=== PATIENT | female | born 1950 | race Caucasian/White ===

== ENCOUNTER 2016-11-28 19:02 | Inpatient (IN) | payer OTHER ==
--- NOTE | 2016-11-28 19:21 | ED Physician Documentation ---
PD HPI DYSPNEA - Stated complaint Stated Complaint: IRREGULAR HB/FEVER - Chief complaint Chief Complaint: Cardiac - History obtained from History obtained from: Patient - History of Present Illness Timing - onset: How many days ago (4-5) Timing - onset during: Light activity Timing - duration: Days (4-5 days of fatigue, general weakness and some cough. Also general headache for 4-5 days. Seen at [facility] today and referred to ED for apparent new onset atrial fib.) Timing - details: Gradual onset, Still present, Waxing and waning Inciting event(s): No: URI Improved by: Rest Worsened by: Exertion (she has felt some dyspnea and fatigue with activity for 4 -5 days. Did not notice chest pain nor palpitations. No noted fever but has had some cough. No edema. Seen in Clinic today and found to have fast heart rate, apparent new onset atrial fib. Referred to ED for further evaluation. BP also noted to be high. Clinic got temp reading of just about 100 but patient says she has not felt feverish. Temp is normal here in ED.) Associated symptoms: Cough, Other (headache for 4-5 days, worse today). No: Fever, Hemoptysis, Wheezing, Chest pain / discomfort, Palpitations, Bilateral edema Similar symptoms before: Has not had sx before (Remotely in 2007 had severe headache which was Dx as aneurysmal bleeding. Had neurosurgical intervention and also coiling of aneurysm, and has done well (with just some dysconjugate gaze problem residual).) Recently seen: Clinic (today seen in Clinic for the headache and cough/dyspnea.) Review of Systems Constitutional: reports: Fatigue. denies: Fever, Chills, Myalgias Eyes: denies: Loss of vision, Photophobia Ears: denies: Ear pain Nose: denies: Rhinorrhea / runny nose, Congestion, Sinus pressure / pain Throat: denies: Sore throat Cardiac: denies: Chest pain / pressure, Palpitations Respiratory: reports: Dyspnea, Cough. denies: Wheezing GI: denies: Abdominal Pain, Nausea, Vomiting, Diarrhea : denies: Dysuria, Frequency Skin: denies: Rash, Lesions Neurologic: reports: Headache (for 4-5 days). denies: Focal weakness, Numbness , Difficulty speaking, Near syncope, Confused, Altered mental status, Head injury Psychiatric: denies: Depressed, Anxiety Endocrine: denies: Weight loss, Easy bruising / bleeding Immunocompromised: denies: Immunocompromised PD PAST MEDICAL HISTORY - Past Medical History Cardiovascular: Hypertension Respiratory: None Neuro: Other (aneurysmal bleeding with stroke and subsequent coling of it, done 2007 in [facility]. 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 : None HEENT: None Psych: None Musculoskeletal: None Derm: None - Past Surgical History Past Surgical History: Yes - Present Medications Home Medications: Ambulatory Orders Medication Instructions Recorded Confirmed Metoprolol Tartrate [Lopressor] 2 01/11/13 01/11/13 Olmesartan Medoxomil [Benicar] DAILY 01/11/13 01/11/13 Potassium Chloride 2 DAILY 01/11/13 01/11/13 predniSONE [Deltasone] 40 mg PO DAILY 5 Days 01/11/13 - Allergies Allergies/Adverse Reactions: Allergies Allergy/AdvReac Type Severity Reaction Status Date / Time lisinopril Allergy Severe Respiratory Verified 11/28/16 19:09 amlodipine besylate * AdvReac Intermediate Edema Verified 11/28/16 19:09 [facility] - Social History Does the pt smoke?: No Smoking Status: Never smoker Does the pt drink ETOH?: No Does the pt have substance abuse?: No - Family History Family history: reports: Non contributory - Immunizations Immunizations are current?: Yes - POLST Patient has POLST: No PD ED PE NORMAL - Vitals Vital signs reviewed: Yes - General General: Alert and oriented X 3, No acute distress, Well developed/nourished - HEENT HEENT: Ears normal, Moist mucous membranes, Pharynx benign - Neck Neck: Supple, no meningeal sign, No adenopathy - Cardiac Cardiac: No: RRR (irregular and fast at rate 120-130, no murmur nor rub. 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 ), No motor deficit, No sensory deficit, Normal speech Results - Vitals Vitals: Vital Signs - 24 hr 11/28/16 11/28/16 11/28/16 19:05 19:17 19:35 Temperature 37.4 C Heart Rate 125 H 128 H Respiratory 13 20 Rate Blood Pressure 200/105 H 170/96 H O2 Saturation 96 96 11/28/16 11/28/16 11/28/16 19:55 20:02 20:23 Temperature Heart Rate 132 H 109 H 111 H Respiratory 20 20 20 Rate Blood Pressure 193/91 H 169/100 H 155/95 H O2 Saturation 94 95 94 11/28/16 11/28/16 11/28/16 20:56 21:27 21:33 Temperature Heart Rate 101 H 97 108 H Respiratory 18 20 18 Rate Blood Pressure 174/108 H 157/83 H 168/89 H O2 Saturation 94 95 96 11/28/16 11/28/16 11/28/16 21:51 22:18 22:50 Temperature Heart Rate 96 112 H 87 Respiratory 20 20 18 Rate Blood Pressure 149/80 H 161/69 H 141/95 H O2 Saturation 96 97 97 11/28/16 11/28/16 11/29/16 23:36 23:52 00:05 Temperature Heart Rate 105 H 115 H 96 Respiratory 20 18 18 Rate Blood Pressure 163/96 H 149/74 H 159/98 H O2 Saturation 93 96 94 Oxygen O2 Source Room air - EKG (time done) 19:12 Rate: Rate (enter#) (134) Rhythm: Atrial fibrillation [place]: Normal QRS: Normal Ischemia: Normal ST segments, Non specific changes. No: ST elevation c/w ischemia, ST depression - Labs Labs: Laboratory Tests 11/28/16 11/28/16 11/28/16 19:20 19:20 19:20 WBC 10.8 RBC 4.80 Hgb 15.0 Hct 45.4 MCV 94.6 MCH 31.3 H MCHC 33.1 RDW 13.5 Plt Count 181 MPV 7.8 L Neut # 5.8 Lymph # 3.7 H [place] # 1.0 Eos # 0.2 Baso # 0.1 Absolute Nucleated RBC 0.01 Nucleated RBCs 0.1 ESR Sodium 141 Potassium 3.6 Chloride 100 L Carbon Dioxide 28 Anion Gap 13.0 BUN 20 Creatinine 1.0 Estimated GFR (MDRD) 56 L Glucose 178 H Calcium 9.5 Magnesium Total Bilirubin 0.6 AST 35 ALT 41 Alkaline Phosphatase 62 Troponin I < 0.04 B-Natriuretic Peptide Total Protein 8.4 H Albumin 4.2 Globulin 4.2 Albumin/Globulin Ratio 1.0 Lipase 39 11/28/16 11/28/16 11/28/16 19:22 19:22 19:22 WBC RBC Hgb Hct MCV MCH MCHC RDW Plt Count MPV Neut # Lymph # [place] # Eos # Baso # Absolute Nucleated RBC Nucleated RBCs ESR 32 H Sodium Potassium Chloride Carbon Dioxide Anion Gap BUN Creatinine Estimated GFR (MDRD) Glucose Calcium Magnesium 1.9 Total Bilirubin AST ALT Alkaline Phosphatase Troponin I B-Natriuretic Peptide 520 H Total Protein Albumin Globulin Albumin/Globulin Ratio Lipase - Rads (name of study) head CT Radiology: Prelim report reviewed, Discussed with rads (areas of petechial hemorrhage around sites of old infarcts and encephalomalacia. These are not in area of prior aneurysm/coil. ) chest Radiology: Prelim report reviewed (normal chest), EMP read contemporaneously ( some vascular fullness c/w mild CHF) PD MEDICAL DECISION MAKING - ED course Complexity details: reviewed results, considered differential (apparently new onset atrial fib. She has had some fatigue, dyspnea, mild cough and so may have some URI symptoms with subsequent atrial fib. Alternatively she might be having general symptoms related to the fib primarily. [facility] provider reports mild temp elevation 100.1 there, but patient denies fever the past few days and temp is normal here. Will give added Metoprolol for heart rate and BP. Check labs and CXR. ), d/w patient, d/w product consultant (consulting [facility] (had her aneurysm treated there) with concern for hypertensive bleed in conjunction with new onset atrial fib. Presume talk with Neurology. So I talked with Neurology and Neurosurgery at [facility]. Consensus is that the current is unrelated to the prior aneurysm/coil. Neurology feels the posterior CVA is probably subacute, more in the days to week range, likely embolic to the new atrial fib, and now with acute petechial hemorrhagic transformation. He did not see need for transfer. Neurologist advised holding ASA, repeating imaging tomorrow (about 24 hours) and if no further bleeding, then give ASA at that time. To get ECHO and Carotid studies. He would wait a week before starting NOAC/Coumadin, unless thrombus in heart found on ECHO, then to consult them again. Consider transfer if further bleeding or neuro changes. Target BP would be about 140-160 systolic. ) Departure - Departure Disposition: 66 [facility] DC/Xfer Clinical Impression: Atrial fibrillation with rapid ventricular response, Cerebrovascular accident ( CVA) with intracranial hemorrhage Dyspnea Qualifiers: Dyspnea type: shortness of breath Qualified Code(s): R06.02 - Shortness of breath Hypertension Qualifiers: Hypertension type: unspecified secondary hypertension Qualified Code(s): I15.9 - Secondary hypertension, unspecified Closed petechial hemorrhage of brain Qualifiers: Encounter type: initial encounter Loss of consciousness presence/duration: without LOC Qualified Code(s): S06.300A - Unspecified focal traumatic brain injury without loss of consciousness, initial encounter Condition: Stable Record reviewed to determine appropriate education?: Yes
[2016-11-28 19:29] LABS: BASOPHILS # (AUTO) 0.1 10^3/uL (0.0-0.1); BASOPHILS % (AUTO) 0.7 %; EOSINOPHILS # (AUTO) 0.2 10^3/uL (0.0-0.7); EOSINOPHILS % (AUTO) 2.2 %; HCT - HEMATOCRIT 45.4 % (37.0-47.0); LYMPHOCYTES # (AUTO) 3.7 10^3/uL (1.5-3.5); LYMPHOCYTES % (AUTO) 34.6 %; MEAN CORPUSCULAR HEMOGLOBIN 31.3 pg (27.0-31.0); MEAN CORPUSCULAR HGB CONC 33.1 g/dL (32.0-36.0); MEAN CORPUSCULAR VOLUME 94.6 fL (81.0-99.0); MEAN PLATELET VOLUME 7.8 fL (7.9-10.8); MONOCYTES % (AUTO) 9.3 %; NEUTROPHILS # (AUTO) 5.8 10^3/uL (1.5-6.6); NEUTROPHILS % (AUTO) 53.2 %; NUCLEATED RED BLOOD CELLS AUTO 0.1 /100WBC; RED CELL DISTRIBUTION WIDTH 13.5 % (12.0-15.0); UNCORRECTED WHITE BLOOD COUNT 10.8 x10^3/uL; WHITE BLOOD COUNT 10.8 x10^3/uL (4.8-10.8)
[2016-11-28 19:45] LABS: BILIRUBIN,TOTAL 0.6 mg/dL (0.2-1.0); CALCIUM 9.5 mg/dL (8.5-10.3); POTASSIUM 3.6 mmol/L (3.5-5.0); TOTAL PROTEIN 8.4 g/dL (6.7-8.2)
[2016-11-28] MEDS ORDERED: METOPROLOL 5 MG/5 ML VIAL IVP STA ×4 (19:52→23:46)
[2016-11-28] MEDS ORDERED: METOPROLOL 5 MG/5 ML VIAL IVP ONE ×4 (19:52→23:48)
[2016-11-28] MEDS ORDERED: POTASSIUM BICARB 25 MEQ TABLET PO STA (20:19)
[2016-11-28] MEDS ORDERED: KETOROLAC 60 MG/2 ML VIAL IVP STA (20:41)
[2016-11-28] MEDS ORDERED: MORPHINE 2 MG/ML SYRINGE IVP STA (20:41)
[2016-11-28] MEDS ORDERED: ONDANSETRON 4 MG/2 ML VIAL IVP STA (20:42)
[2016-11-28] MEDS ORDERED: POTASSIUM BICARB 25 MEQ TABLET PO ONE (20:56)
--- NOTE | 2016-11-28 21:10 | CT Preliminary Report ---
Exam: CT Head W/O IMPRESSION: 1. Cortical high attenuation in medial right occipital lobe, concerning for a gyriform or petechial h emorrhage, such as with hemorrhagic transformation of cerebral infarction. In this right occipital lo be there is evidence of an old right posterior circulation infarcts with chronic encephalomalacia. 2. No subdural fluid collection or mass effect. RADIA The above critical findings were discussed with Dr. Gillespie by Dr. Manfred Chadwick at 21:08 hr s on 11/28/16. SITE ID: [id number]
--- NOTE | 2016-11-28 21:12 | XRAY Preliminary Report ---
Exam: XR Chest 1 View IMPRESSION: Negative chest. [facility] SITE ID: [id number]
--- NOTE | 2016-11-28 21:13 | CT Report ---
EXAM: CT HEAD EXAM DATE: 11/28/2016 08:32 PM. CLINICAL HISTORY: Headache for 5 days; prior aneurysm clipping. COMPARISON: None. TECHNIQUE: Multiaxial CT images were obtained from the foramen magnum to the vertex. IV contrast: Non e. Reformats: Coronal. In accordance with CT protocol optimization, one or more of the following dose reduction techniques w ere utilized for this exam: automated exposure control, adjustment of mA and/or KV based on patient s ize, or use of iterative reconstructive technique. FINDINGS: Parenchyma: There is parenchymal hypodensity in the right occipital lobe with adjacent curvilinear ar ea of cortical hyperdensity in the medial right occipital lobe. There is blunting of sulci in the med ial right occipital lobe. There is no midline shift. Extraaxial Spaces: No abnormal subdural or epidural fluid collection. Ventricles: The ventricles appear unchanged. Sinuses: Paranasal sinuses are clear. Bones: No caliber and fracture. Other: None. IMPRESSION: 1. Cortical high attenuation in medial right occipital lobe, concerning for a gyriform or petechial h emorrhage, such as with hemorrhagic transformation of cerebral infarction. In this right occipital lo be there is evidence of an old right posterior circulation infarcts with chronic encephalomalacia. 2. No subdural fluid collection or mass effect. RADIA The above critical findings were discussed with Dr. Gillespie by Dr. Manfred Chadwick at 21:08 hr s on 11/28/16. Referring Provider Line: [phone] SITE ID: [id number]
--- NOTE | 2016-11-28 21:15 | XRAY Report ---
EXAM: CHEST RADIOGRAPHY EXAM DATE: 11/28/2016 08:40 PM. CLINICAL HISTORY: Dyspnea and atrial fib. COMPARISON: None. TECHNIQUE: 1 view. FINDINGS: Lungs/Pleura: No focal opacities evident. No pleural effusion. No pneumothorax. Mediastinum: Within exam limitations, cardiomediastinal contour is normal. Other: None. IMPRESSION: Negative chest. [facility] Referring Provider Line: [phone] SITE ID: [id number]
[2016-11-29] MEDS ORDERED: ONDANSETRON 4 MG/2 ML VIAL IVP PRN (00:19)
[2016-11-29] MEDS ORDERED: SODIUM CHLORIDE FLUSH 0.9% 10 ML SYRINGE IVP PRN (00:19)
--- NOTE | 2016-11-29 03:24 | HISTORY & PHYSICAL EXAMINATION ---
DATE OF ADMISSION: 11/29/2016 PRIMARY CARE PROVIDER: [facility]. CHIEF COMPLAINT: Headache and dyspnea with exertion over the past 5 days. HISTORY OF PRESENT ILLNESS: This is a 66-year-old female whose past medical history is significant fo r hypertension. 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 Otherwise, she has no acute neurological symptoms except for generalized headache. No visual disturbances. No motor deficits. No sensory deficits, no speech d ifficulties. Her evaluation in the emergency room included the discovery of RVR atrial fibrillation. She has no history of RVR atrial fibrillation. Her initial rate was 134. She was given several doses of metoprolol and currently is 90-105. Troponin is negative. CT of head without contrast reveals rosi ical high attenuation in the medial right occipital lobe, concerning for a gyriform or petechial hemo rrhage such as with hemorrhagic transformation of cerebral infarction. In this right occipital lobe, there is evidence of an old posterior circulation infarct with chronic encephalomalacia. No subdural fluid collection or mass effect is noted. These findings were discussed by ER physician, Dr. Gillespie, with [facility] Neurosurgery and Neurology. This does not appear to be in the area of previous aneur ysmal coiling and it was recommended that the patient not be given antiplatelet agents for the next 2 4 hours and recheck a CT of head without contrast and do additional CVA imaging studies as usual. The y did recommend also initiating oral anticoagulants in 1-2 weeks. PAST MEDICAL HISTORY: Hypertension, history of aneurysmal coiling in 2007 at [facility]. MEDICATIONS UPON ADMISSION 1. Metoprolol tartrate, unknown dose daily. 2. Benicar daily. ALLERGIES 1. LISINOPRIL. 2. AMLODIPINE. FAMILY MEDICAL HISTORY: Mother with a history of pancreatic cancer, diagnosed in her 80s. SOCIAL HISTORY: Lives with , who is retired [employer]. Smoking, never. Alcohol, none. REVIEW OF SYSTEMS: Denies any chest pain. Denies any nausea or vomiting. All other review of systems are reviewed and are negative except for as in HPI. PHYSICAL EXAMINATION VITAL SIGNS: Reveals heart rate is 102, blood pressure 159/84, respiratory rate 20, room air saturati on 93-96%. CONSTITUTIONAL: Middle-aged woman in no acute distress. HEAD: Normocephalic, atraumatic. EYES: PERRLA-DC. She does have a disconjugate gaze of the left eye with problems moving medially. MOUTH: No lesions. NECK: No adenopathy. Carotids 2+/4 without bruits. CHEST: Clear to auscultation. COR: Irregular irregularly rhythm, tachycardic, S1, S2. ABDOMEN: Soft, nontender. Bowel sounds present. EXTREMITIES: No pedal edema. SKIN: No rashes. PSYCHIATRIC: Mood and affect are appropriate. NEUROLOGIC: She is alert and oriented x3. Motor strength is intact bilaterally. Sensory is intact billie aterally. LABORATORY DATA: As above, also to include sodium of 141, potassium 3.6, chloride 100, bicarbonate 28 , BUN 20, creatinine 1.0, calculated GFR 56, glucose 178, calcium 9.5, magnesium 1.9, total bilirubin 0.6, AST 35, ALT 41, alkaline phosphatase 62, troponin less than 0.05. BNP 520, total protein 8.4, a lbumin 4.2, lipase 39. White count 10.8, hemoglobin 15.0, hematocrit 45.4, MCV 94.6, platelets 181. S edimentation rate is 32. ASSESSMENT AND PLAN 1. Rapid ventricular rate, atrial fibrillation, new onset, present on admission. Check TSH, check ech ocardiogram. IV metoprolol p.r.n. q.2h. heart rate greater than 110. Initiate metoprolol succinate 50 mg p.o. daily. Unclear what her home dosage typically is. Place on telemetry and anticoagulation ora l to start in 1-2 weeks per Neurology. 2. Subacute medial right occipital lobe cerebrovascular accident with hemorrhagic transformation, pre sent on admission. Discussions with [facility] [place] per ER recommended repeating CT of head without con trast later tomorrow and we will go ahead with MRA of brain and neck and MRI of brain for further emery luation and check echocardiogram. Neuro checks per CVA protocol. 3. Hypertension, chronic, present on admission. We will put her on Cozaar, along with metoprolol. Per [facility] [place], recommend blood pressure of 140-160 systolic. 4. Elevated blood sugar, present on admission. We will place on subcu insulin protocol. Check hemoglo bin A1c. 5. Deep venous thrombosis prophylaxis. We will use SCDs, avoid subcutaneous prophylactic anticoagulat ion. 6. Code status. The patient is FULL CODE. TIME SPENT: 60 minutes. JOB #: [id number] EXT JOB #:[id number]
[2016-11-29] MEDS: SODIUM CHLORIDE FLUSH 0.9% 10 ML SYRINGE IVP SCH ×3 (05:53→20:16)
[2016-11-29 06:27] LABS: CHOL/HDL RATIO 5.1 (<4.4); CHOLESTEROL 215 mg/dL; HDL CHOLESTEROL 42 mg/dL; LDL/HDL RATIO 3.5 (<4.4); TRIGLYCERIDES 135 mg/dL; VLDL CHOLESTEROL 27 mg/dL
[2016-11-29 07:27] LABS: HEMOGLOBIN A1C 0.9 g/dL
[2016-11-29] MEDS: METOPROLOL 5 MG/5 ML VIAL IVP PRN ×2 (08:09→11:52)
[2016-11-29] MEDS: POLYETHYLENE GLYCOL 3350 17 GM PACKET PO SCH (08:20)
[2016-11-29] MEDS: METOPROLOL SUCCINATE 50 MG TABLET PO SCH (08:20)
[2016-11-29] MEDS: INSULIN ASPART 300 UNIT/3 ML PEN SUBQ SCH ×4 (08:20→21:31)
[2016-11-29] MEDS ORDERED: LOSARTAN 50 MG TABLET PO SCH (09:00)
[2016-11-29] MEDS: DIGOXIN 500 MCG/2 ML AMP IVP SCH ×3 (13:53→21:30)
--- NOTE | 2016-11-29 15:29 | PROVIDER PROGRESS NOTE ---
Assessment/Plan - Problem List (1) Atrial fibrillation with rapid ventricular response Assessment/Plan: She was better controlled this am now more RVR. Will start Digoxin. (2) Cerebrovascular accident (CVA) with intracranial hemorrhage Assessment/Plan: She is getting further W/u with a MRI and MRA (3) Hypertension Qualifiers: Hypertension type: unspecified secondary hypertension Qualified Code(s): I15.9 - Secondary hypertension, unspecified; I15 - Secondary hypertension Assessment/Plan: BP, is 1400s to 150s that is goal with the CVA and the hemorrhage - Current Meds Current Meds: Current Medications Generic Name Dose Route Start Last Admin Trade Name Freq PRN Reason Stop Dose Admin Digoxin 250 mcg 11/29/16 13:00 11/29/16 13:53 Lanoxin Inj IVP 11/29/16 21:01 250 mcg Q4H PAUL Administration Insulin Aspart 1 - 5 unit 11/29/16 08:00 11/29/16 12:04 Novolog SUBQ 1 unit 0800,1200,1700,2100 PAUL Administration Protocol Losartan Potassium 50 mg 11/29/16 09:00 11/29/16 08:20 Cozaar PO 50 mg DAILY PAUL Administration Metoprolol Succinate 50 mg 11/29/16 09:00 11/29/16 08:20 Toprol Xl PO 50 mg DAILY PAUL Administration Metoprolol Tartrate 5 mg 11/29/16 00:32 11/29/16 11:52 Lopressor Inj IVP 5 mg Q2H PRN Administration hr>110 Polyethylene Glycol 17 gm 11/29/16 09:00 11/29/16 08:20 Miralax PO Not Given DAILY PAUL Sodium Chloride 10 ml 11/29/16 06:00 11/29/16 08:20 Normal Saline Flush 0.9% IVP 10 ml Q8HR PAUL Administration - Lab Result Fish Bone Diagrams: 11/28/16 19:20 11/28/16 19:20 - Additional Planning My Orders: My Active Orders 11/29/16 Evaluate and Treat OT [OT] Routine Evaluate and Treat PT [PT] Routine 11/29/16 13:00 Digoxin Inj [Lanoxin Inj] 250 mcg IVP Q4H 11/30/16 09:00 Digoxin Inj [Lanoxin Inj] 250 mcg IVP DAILY Losartan Potassium [Cozaar] 100 mg PO DAILY Subjective - Subjective Patient Reports: Resting Comfortably Nursing Reports: No Complaints Objective Vital Signs: Vital Signs - 24 hr 11/29/16 11/29/16 11/29/16 00:32 01:08 03:00 Temperature 37.0 C 36.7 C Heart Rate 102 H Heart Rate [ 86 90 Brachial] Respiratory 20 17 20 Rate Blood Pressure 159/84 H Blood Pressure 194/97 H [Left Brachial artery] Blood Pressure 173/113 H 151/91 H [Right Brachial artery] O2 Saturation 93 95 94 11/29/16 11/29/16 11/29/16 05:00 07:00 08:09 Temperature 37.2 C 37.1 C Heart Rate Heart Rate [ 106 H 93 Brachial] Respiratory 20 16 Rate Blood Pressure 152/91 H Blood Pressure 119/88 H [Left Brachial artery] Blood Pressure 156/72 H [Right Brachial artery] O2 Saturation 94 94 11/29/16 11/29/16 11/29/16 08:15 08:20 08:25 Temperature Heart Rate Heart Rate [ 121 H 101 H 103 H Brachial] Respiratory Rate Blood Pressure Blood Pressure 139/91 H 138/79 H [Left Brachial artery] Blood Pressure 127/85 H [Right Brachial artery] O2 Saturation 11/29/16 11/29/16 11/29/16 08:39 09:00 11:00 Temperature 37.0 C 37.1 C Heart Rate Heart Rate [ 74 87 96 Brachial] Respiratory 18 18 Rate Blood Pressure 121/68 Blood Pressure 146/76 H 135/76 H [Left Brachial artery] Blood Pressure [Right Brachial artery] O2 Saturation 95 92 11/29/16 11/29/16 11/29/16 11:52 11:59 12:00 Temperature Heart Rate Heart Rate [ 111 H 112 H Brachial] Respiratory Rate Blood Pressure 164/82 H Blood Pressure 139/83 H 127/74 [Left Brachial artery] Blood Pressure [Right Brachial artery] O2 Saturation 11/29/16 11/29/16 11/29/16 12:12 12:14 13:00 Temperature 36.9 C Heart Rate Heart Rate [ 95 89 Brachial] Respiratory 18 Rate Blood Pressure 159/99 H Blood Pressure 144/86 H [Left Brachial artery] Blood Pressure 159/99 H [Right Brachial artery] O2 Saturation 93 11/29/16 11/29/16 11/29/16 13:53 13:55 14:00 Temperature Heart Rate 122 H Heart Rate [ 122 H 115 H Brachial] Respiratory Rate Blood Pressure Blood Pressure 170/92 H 160/79 H [Left Brachial artery] Blood Pressure [Right Brachial artery] O2 Saturation 11/29/16 11/29/16 11/29/16 14:05 14:22 14:40 Temperature Heart Rate Heart Rate [ 101 H 101 H 106 H Brachial] Respiratory Rate Blood Pressure Blood Pressure 167/70 H 166/78 H 162/63 H [Left Brachial artery] Blood Pressure [Right Brachial artery] O2 Saturation 11/29/16 14:57 Temperature 37.1 C Heart Rate Heart Rate [ 86 Brachial] Respiratory 16 Rate Blood Pressure Blood Pressure 147/90 H [Left Brachial artery] Blood Pressure [Right Brachial artery] O2 Saturation 94 Oxygen O2 Source Room air I&O (Last 24 Hrs): Intake and Output Totals x24h 11/27/16 11/28/16 11/29/16 23:59 23:59 23:59 Intake Total 650 Balance 650 General: Alert, Oriented x3, Cooperative HEENT: PERRLA, EOMI Neck: No thyromegaly Neuro: Alert, Non Focal Cardiovascular: Regular rate, No murmurs Respiratory: Chest non-tender, No respiratory distress, Breath sounds nml Abdomen: Normal bowel sounds, Soft Extremities: No clubbing, No edema - Results Results: Laboratory Results WBC 10.8 x10^3/uL (4.8-10.8) 11/28/16 19:20 RBC 4.80 10^6/uL (4.20-5.40) 11/28/16 19:20 Hgb 15.0 g/dL (12.0-16.0) 11/28/16 19:20 Hct 45.4 % (37.0-47.0) 11/28/16 19:20 MCV 94.6 fL (81.0-99.0) 11/28/16 19:20 MCH 31.3 pg (27.0-31.0) H 11/28/16 19:20 MCHC 33.1 g/dL (32.0-36.0) 11/28/16 19:20 RDW 13.5 % (12.0-15.0) 11/28/16 19:20 Plt Count 181 10^3/uL (130-450) 11/28/16 19:20 MPV 7.8 fL (7.9-10.8) L 11/28/16 19:20 Neut # 5.8 10^3/uL (1.5-6.6) 11/28/16 19:20 Lymph # 3.7 10^3/uL (1.5-3.5) H 11/28/16 19:20 [place] # 1.0 10^3/uL (0.0-1.0) 11/28/16 19:20 Eos # 0.2 10^3/uL (0.0-0.7) 11/28/16 19:20 Baso # 0.1 10^3/uL (0.0-0.1) 11/28/16 19:20 Absolute Nucleated RBC 0.01 x10^3/uL 11/28/16 19:20 Nucleated RBCs 0.1 /100WBC 11/28/16 19:20 ESR 32 mm/Hr (0-30) H 11/28/16 19:22 Sodium 141 mmol/L (135-145) 11/28/16 19:20 Potassium 3.6 mmol/L (3.5-5.0) 11/28/16 19:20 Chloride 100 mmol/L (101-111) L 11/28/16 19:20 Carbon Dioxide 28 mmol/L (21-32) 11/28/16 19:20 Anion Gap 13.0 (6-13) 11/28/16 19:20 BUN 20 mg/dL (6-20) 11/28/16 19:20 Creatinine 1.0 mg/dL (0.4-1.0) 11/28/16 19:20 Estimated GFR (MDRD) 56 (>89) L 11/28/16 19:20 Glucose 178 mg/dL (70-100) H 11/28/16 19:20 POC Whole Bld Glucose 145 mg/dL (70 - 100) H 11/29/16 10:52 Glycated Hemoglobin 7.4 % (4.6-6.2) H 11/29/16 05:58 Estim Average Glucose 166 (70-100) H 11/29/16 05:58 Calcium 9.5 mg/dL (8.5-10.3) 11/28/16 19:20 Magnesium 1.9 mg/dL (1.7-2.8) 11/28/16 19:22 Total Bilirubin 0.6 mg/dL (0.2-1.0) 11/28/16 19:20 AST 35 IU/L (10-42) 11/28/16 19:20 ALT 41 IU/L (10-60) 11/28/16 19:20 Alkaline Phosphatase 62 IU/L (42-121) 11/28/16 19:20 Troponin I < 0.04 ng/mL (<0.49) 11/28/16 19:20 B-Natriuretic Peptide 520 pg/mL (5-100) H 11/28/16 19:22 Total Protein 8.4 g/dL (6.7-8.2) H 11/28/16 19:20 Albumin 4.2 g/dL (3.2-5.5) 11/28/16 19:20 Globulin 4.2 g/dL (2.1-4.2) 11/28/16 19:20 Albumin/Globulin Ratio 1.0 (1.0-2.2) 11/28/16 19:20 Triglycerides 135 mg/dL (-149) 11/29/16 05:58 Cholesterol 215 mg/dL (-199) H 11/29/16 05:58 LDL Cholesterol, Calc 146 mg/dL (-129) H 11/29/16 05:58 VLDL Cholesterol 27 mg/dL 11/29/16 05:58 HDL Cholesterol 42 mg/dL (60-) L 11/29/16 05:58 LDL/HDL Ratio 3.5 (<4.4) 11/29/16 05:58 Cholesterol/HDL Ratio 5.1 (<4.4) 11/29/16 05:58 Lipase 39 U/L (22-51) 11/28/16 19:20 TSH 21.07 uIU/mL (0.34-5.60) H 11/29/16 05:58
--- NOTE | 2016-11-29 16:23 | CT Preliminary Report ---
Exam: CT Head W/O IMPRESSION: 1. No significant interval change. 2. Right occipital edema with rounded areas of increased density as previously described. In addition to evolving infarction or contusion, differential consideration should be given to underlying tumor with edema. Follow-up is recommended for this possibility. [facility] SITE ID: [id number]
--- NOTE | 2016-11-29 16:26 | CT Report ---
EXAM: CT HEAD EXAM DATE: 11/29/2016 03:57 PM. CLINICAL HISTORY: Cva. COMPARISON: 11/28/2016. TECHNIQUE: Multiaxial CT images were obtained from the foramen magnum to the vertex. IV contrast: Non e. Reformats: Coronal. In accordance with CT protocol optimization, one or more of the following dose reduction techniques w ere utilized for this exam: automated exposure control, adjustment of mA and/or KV based on patient s ize, or use of iterative reconstructive technique. FINDINGS: Parenchyma: Hypoattenuation in the right occipital region with rounded areas of increased density not significantly changed. Localized mass effect. No midline shift. Good zarate-white differentiation. Pre vious intervention with aneurysm coils in or near left paimiut of Aguero. Extraaxial Spaces: Normal for age. No subdural or epidural collections. Ventricles: Normal in size and position. Mild effacement of right lateral ventricle. Sinuses: Imaged paranasal sinuses, orbits, and mastoids show no significant abnormality. Bones: Unremarkable. Other: None. IMPRESSION: 1. No significant interval change. 2. Right occipital edema with rounded areas of increased density as previously described. In addition to evolving infarction or contusion, differential consideration should be given to underlying tumor with edema. Follow-up is recommended for this possibility. [facility] Referring Provider Line: [phone] SITE ID: [id number]
[2016-11-29] MEDS ORDERED: LOSARTAN 50 MG TABLET PO ONE (18:45)
[2016-11-29] MEDS ORDERED: hydrALAZINE INJ 20 MG/ML VIAL IVP PRN (19:31)
[2016-11-30] MEDS: SODIUM CHLORIDE FLUSH 0.9% 10 ML SYRINGE IVP SCH (05:39)
[2016-11-30] MEDS ORDERED: LEVOTHYROXINE 25 MCG TABLET PO SCH (08:00)
[2016-11-30] MEDS: INSULIN ASPART 300 UNIT/3 ML PEN SUBQ SCH ×2 (08:01→12:01)
[2016-11-30] MEDS ORDERED: DIGOXIN 500 MCG/2 ML AMP IVP SCH (09:00)
[2016-11-30] MEDS ORDERED: LOSARTAN 50 MG TABLET PO SCH (09:00)
[2016-11-30] MEDS: METOPROLOL SUCCINATE 50 MG TABLET PO SCH (09:23)
[2016-11-30] MEDS: POLYETHYLENE GLYCOL 3350 17 GM PACKET PO SCH (09:23)
--- NOTE | 2016-11-30 12:27 | PROVIDER PROGRESS NOTE ---
Assessment/Plan - Problem List (1) Atrial fibrillation with rapid ventricular response Assessment/Plan: she is now rate controlled. Late entry for [id number] (2) Cerebrovascular accident (CVA) with intracranial hemorrhage Assessment/Plan: She had repeat Head CT but MRI pending. (3) Hypertension Qualifiers: Hypertension type: unspecified secondary hypertension Assessment/Plan: HTN goal is 14o -150 She is above that some of the time. Lower goal due to the bleeding after ischemic stroke. - Current Meds Current Meds: Current Medications Generic Name Dose Route Start Last Admin Trade Name Freq PRN Reason Stop Dose Admin Digoxin 250 mcg 11/30/16 09:00 11/30/16 09:24 Lanoxin Inj IVP 250 mcg DAILY PAUL Administration Hydralazine HCl 10 mg 11/29/16 19:31 11/29/16 20:15 Apresoline Inj IVP 10 mg Q4H PRN Administration SBP>165 Insulin Aspart 1 - 5 unit 11/29/16 08:00 11/30/16 12:01 Novolog SUBQ 1 unit 0800,1200,1700,2100 PAUL Administration Protocol Levothyroxine Sodium 25 mcg 11/30/16 08:00 11/30/16 09:24 Synthroid PO 25 mcg QDAC PAUL Administration Losartan Potassium 100 mg 11/30/16 09:00 11/30/16 09:23 Cozaar PO 100 mg DAILY PAUL Administration Metoprolol Succinate 50 mg 11/29/16 09:00 11/30/16 09:23 Toprol Xl PO 50 mg DAILY PAUL Administration Metoprolol Tartrate 5 mg 11/29/16 00:32 11/29/16 11:52 Lopressor Inj IVP 5 mg Q2H PRN Administration hr>110 Polyethylene Glycol 17 gm 11/29/16 09:00 11/30/16 09:23 Miralax PO Not Given DAILY PAUL Sodium Chloride 10 ml 11/29/16 00:19 11/29/16 21:33 Normal Saline Flush 0.9% IVP 10 ml PRN PRN Administration NEEDED PER PROVIDER ORDERS Sodium Chloride 10 ml 11/29/16 06:00 11/30/16 05:39 Normal Saline Flush 0.9% IVP 10 ml Q8HR PAUL Administration - Lab Result Fish Bone Diagrams: 11/28/16 19:20 11/28/16 19:20 - Additional Planning My Orders: My Active Orders 11/30/16 08:00 Levothyroxine [Synthroid] 25 mcg PO QDAC 11/30/16 09:00 Digoxin Inj [Lanoxin Inj] 250 mcg IVP DAILY Losartan [Cozaar] 100 mg PO DAILY 11/30/16 11:00 Angio Neck W/O (MRA) [MRI] Routine Subjective - Subjective Patient Reports: Feeling Better, Resting Comfortably Nursing Reports: Headache Objective Vital Signs: Vital Signs - 24 hr 11/29/16 11/29/16 11/29/16 13:00 13:53 13:55 Temperature 36.9 C Heart Rate 122 H Heart Rate [ 89 122 H Brachial] Respiratory 18 Rate Blood Pressure Blood Pressure 144/86 H 170/92 H [Left Brachial artery] Blood Pressure [Right Brachial artery] O2 Saturation 93 11/29/16 11/29/16 11/29/16 14:00 14:05 14:22 Temperature Heart Rate Heart Rate [ 115 H 101 H 101 H Brachial] Respiratory Rate Blood Pressure Blood Pressure 160/79 H 167/70 H 166/78 H [Left Brachial artery] Blood Pressure [Right Brachial artery] O2 Saturation 11/29/16 11/29/16 11/29/16 14:40 14:57 16:45 Temperature 37.1 C Heart Rate Heart Rate [ 106 H 86 100 Brachial] Respiratory 16 Rate Blood Pressure Blood Pressure 162/63 H 147/90 H 189/98 H [Left Brachial artery] Blood Pressure [Right Brachial artery] O2 Saturation 94 11/29/16 11/29/16 11/29/16 16:50 16:55 16:59 Temperature 37.1 C Heart Rate Heart Rate [ 98 101 H 96 Brachial] Respiratory 14 Rate Blood Pressure Blood Pressure 184/85 H 179/89 H [Left Brachial artery] Blood Pressure 184/85 H [Right Brachial artery] O2 Saturation 96 11/29/16 11/29/16 11/29/16 18:00 18:40 20:11 Temperature 36.9 C 37.2 C Heart Rate Heart Rate [ 94 88 77 Brachial] Respiratory 16 24 Rate Blood Pressure Blood Pressure [Left Brachial artery] Blood Pressure 157/76 H 172/108 H 175/85 H [Right Brachial artery] O2 Saturation 95 96 11/29/16 11/29/16 11/29/16 20:15 20:20 20:24 Temperature Heart Rate Heart Rate [ 104 H 106 H Brachial] Respiratory Rate Blood Pressure 175/85 H Blood Pressure [Left Brachial artery] Blood Pressure 160/69 H 146/72 H [Right Brachial artery] O2 Saturation 11/29/16 11/29/16 11/29/16 20:30 20:45 21:00 Temperature 37.0 C Heart Rate Heart Rate [ 111 H 120 H 116 H Brachial] Respiratory Rate Blood Pressure 177/72 H Blood Pressure [Left Brachial artery] Blood Pressure 166/68 H 177/72 H 171/72 H [Right Brachial artery] O2 Saturation 11/29/16 11/29/16 11/29/16 21:16 21:30 23:48 Temperature 36.9 C 36.8 C Heart Rate 115 H Heart Rate [ 106 H 108 H Brachial] Respiratory 20 20 Rate Blood Pressure Blood Pressure [Left Brachial artery] Blood Pressure 150/98 H 159/91 H [Right Brachial artery] O2 Saturation 96 94 11/30/16 11/30/16 11/30/16 05:00 08:00 09:24 Temperature 36.6 C 36.9 C Heart Rate 122 H Heart Rate [ 87 89 Brachial] Respiratory 18 24 Rate Blood Pressure Blood Pressure [Left Brachial artery] Blood Pressure 145/85 H 136/86 H [Right Brachial artery] O2 Saturation 96 93 11/30/16 11:00 Temperature 36.7 C Heart Rate Heart Rate [ 90 Brachial] Respiratory 16 Rate Blood Pressure Blood Pressure [Left Brachial artery] Blood Pressure 133/96 H [Right Brachial artery] O2 Saturation 96 Oxygen O2 Source Room air I&O (Last 24 Hrs): Intake and Output Totals x24h 11/28/16 11/29/16 11/30/16 23:59 23:59 23:59 Intake Total 950 490 Balance 950 490 General: Alert, Oriented x3, Cooperative HEENT: PERRLA, EOMI Neck: No JVD, No thyromegaly Neuro: Alert, Oriented Times 3 Cardiovascular: Other (A fib) Respiratory: Chest non-tender, No respiratory distress, Breath sounds nml Abdomen: Normal bowel sounds, Soft, No tenderness Extremities: No cyanosis, No edema Skin: No rashes, No breakdown - Results Results: Laboratory Results WBC 10.8 x10^3/uL (4.8-10.8) 11/28/16 19:20 RBC 4.80 10^6/uL (4.20-5.40) 11/28/16 19:20 Hgb 15.0 g/dL (12.0-16.0) 11/28/16 19:20 Hct 45.4 % (37.0-47.0) 11/28/16 19:20 MCV 94.6 fL (81.0-99.0) 11/28/16 19:20 MCH 31.3 pg (27.0-31.0) H 11/28/16 19:20 MCHC 33.1 g/dL (32.0-36.0) 11/28/16 19:20 RDW 13.5 % (12.0-15.0) 11/28/16 19:20 Plt Count 181 10^3/uL (130-450) 11/28/16 19:20 MPV 7.8 fL (7.9-10.8) L 11/28/16 19:20 Neut # 5.8 10^3/uL (1.5-6.6) 11/28/16 19:20 Lymph # 3.7 10^3/uL (1.5-3.5) H 11/28/16 19:20 Kendall # 1.0 10^3/uL (0.0-1.0) 11/28/16 19:20 Eos # 0.2 10^3/uL (0.0-0.7) 11/28/16 19:20 Baso # 0.1 10^3/uL (0.0-0.1) 11/28/16 19:20 Absolute Nucleated RBC 0.01 x10^3/uL 11/28/16 19:20 Nucleated RBCs 0.1 /100WBC 11/28/16 19:20 ESR 32 mm/Hr (0-30) H 11/28/16 19:22 Sodium 141 mmol/L (135-145) 11/28/16 19:20 Potassium 3.6 mmol/L (3.5-5.0) 11/28/16 19:20 Chloride 100 mmol/L (101-111) L 11/28/16 19:20 Carbon Dioxide 28 mmol/L (21-32) 11/28/16 19:20 Anion Gap 13.0 (6-13) 11/28/16 19:20 BUN 20 mg/dL (6-20) 11/28/16 19:20 Creatinine 1.0 mg/dL (0.4-1.0) 11/28/16 19:20 Estimated GFR (MDRD) 56 (>89) L 11/28/16 19:20 Glucose 178 mg/dL (70-100) H 11/28/16 19:20 POC Whole Bld Glucose 143 mg/dL (70 - 100) H 11/30/16 11:49 Glycated Hemoglobin 7.4 % (4.6-6.2) H 11/29/16 05:58 Estim Average Glucose 166 (70-100) H 11/29/16 05:58 Calcium 9.5 mg/dL (8.5-10.3) 11/28/16 19:20 Magnesium 1.9 mg/dL (1.7-2.8) 11/28/16 19:22 Total Bilirubin 0.6 mg/dL (0.2-1.0) 11/28/16 19:20 AST 35 IU/L (10-42) 11/28/16 19:20 ALT 41 IU/L (10-60) 11/28/16 19:20 Alkaline Phosphatase 62 IU/L (42-121) 11/28/16 19:20 Troponin I < 0.04 ng/mL (<0.49) 11/28/16 19:20 B-Natriuretic Peptide 520 pg/mL (5-100) H 11/28/16 19:22 Total Protein 8.4 g/dL (6.7-8.2) H 11/28/16 19:20 Albumin 4.2 g/dL (3.2-5.5) 11/28/16 19:20 Globulin 4.2 g/dL (2.1-4.2) 11/28/16 19:20 Albumin/Globulin Ratio 1.0 (1.0-2.2) 11/28/16 19:20 Triglycerides 135 mg/dL (-149) 11/29/16 05:58 Cholesterol 215 mg/dL (-199) H 11/29/16 05:58 LDL Cholesterol, Calc 146 mg/dL (-129) H 11/29/16 05:58 VLDL Cholesterol 27 mg/dL 11/29/16 05:58 HDL Cholesterol 42 mg/dL (60-) L 11/29/16 05:58 LDL/HDL Ratio 3.5 (<4.4) 11/29/16 05:58 Cholesterol/HDL Ratio 5.1 (<4.4) 11/29/16 05:58 Lipase 39 U/L (22-51) 11/28/16 19:20 TSH 21.07 uIU/mL (0.34-5.60) H 11/29/16 05:58 Last Dose Date [facility] 11/30/16 05:58 Last Dose Time [facility] 11/30/16 05:58 Digoxin 1.1 ng/mL 11/30/16 05:58
--- NOTE | 2016-11-30 12:34 | Discharge Plan ---
Discharge Plan Disposition: 01 Home, Self Care Condition: Good Prescriptions: Aspirin 325 mg PO QDBREAKFAST #30 tablet Diet: Regular Activity Restrictions: Activity as Tolerated Shower Restrictions: No Weight Bearing: Full Weight Instruction Topics: Atrial Fibrillation No Smoking: If you smoke, Please STOP! Call for help. Follow-up with: Ghazal Suazo MD [Primary Care Provider] - 1 Week
--- NOTE | 2016-11-30 12:57 | MRI Preliminary Report ---
Exam: MRI Brain W/O IMPRESSION: 1. Corresponding to the area of right temporo-occipital hemorrhagic infarction seen on the comparison CT, there is medial right temporo-occipital area of high DWI signal and associated high FLAIR signal , measuring approximately 7.6 x 2.9 cm (series 505 image 88), with mild associated low ADC values. Ov erall, this likely represents acute infarct, 24 hours to 1 week old. The associated cortical and pare nchymal T2 hyperintensity and susceptibility artifact likely represents hemorrhagic transformation of the infarcted area. 2. Moderate scattered T2/FLAIR hyperintense periventricular, deep, and subcortical white matter lesio ns within cerebral hemispheres bilaterally. While nonspecific, this likely represents sequela of body welder rosa microangiopathy. 3. There is a focus of susceptibility artifact within the right p frontal region (series 801 image 20 ) as well as within the right parietal (1 image 18). These are nonspecific, may represent cavernomas, parenchymal microhemorrhages, or thromboses within venous structures. 4. A 9 mm T1 hypointense lesion, incompletely evaluated, within the left parotid gland (series 601 im age 1). [facility] SITE ID: [id number]
--- NOTE | 2016-11-30 13:00 | MRI Report ---
EXAM: MRI BRAIN WITHOUT CONTRAST EXAM DATE: 11/30/2016 10:36 AM. CLINICAL HISTORY: Cva. History of aneurysm coiling COMPARISON: CT head 11/29/2016 TECHNIQUE: Multiplanar, multisequence T1-weighted and fluid-sensitive MR sequences of the brain were performed. Sequences optimized for routine evaluation. Other: None. IV Contrast: None. FINDINGS: Brain Volume: Normal for age. Parenchyma/Dura: Again seen is a medial right temporo-occipital area of high DWI signal and associate d high FLAIR signal, measuring approximately 7.6 x 2.9 cm (series 505 image 88), with mild associated low ADC values. Associated cortical T2 hyperintensity and susceptibility artifact likely represents hemorrhagic transformation of the infarcted area. Moderate scattered T2/FLAIR hyperintense periventricular, deep, and subcortical white matter lesions within cerebral hemispheres bilaterally. There is a focus of susceptibility artifact within the right p frontal region (series 801 image 20) as well as within the right parietal (1 image 18). These are nonspecific, may represent cavernomas, parenchymal microhemorrhages, or thromboses within venous stru ctures. Ventricles/Cisterns: There is stable mild mass effect on the right greater than left lateral ventricl e with approximately 3 mm leftward midline shift. Sinuses: Normal. No sinusitis evident. Bones: Normal. Other: There is a 9 mm T1 hypointense lesion, incompletely evaluated, within the left parotid gland ( series 601 image 1). IMPRESSION: 1. Corresponding to the area of right temporo-occipital hemorrhagic infarction seen on the comparison CT, there is medial right temporo-occipital area of high DWI signal and associated high FLAIR signal , measuring approximately 7.6 x 2.9 cm (series 505 image 88), with mild associated low ADC values. Ov erall, this likely represents acute infarct, 24 hours to 1 week old. The associated cortical and pare nchymal T2 hyperintensity and susceptibility artifact likely represents hemorrhagic transformation of the infarcted area. 2. Moderate scattered T2/FLAIR hyperintense periventricular, deep, and subcortical white matter lesio ns within cerebral hemispheres bilaterally. While nonspecific, this likely represents sequela of irrigator head rosa microangiopathy. 3. There is a focus of susceptibility artifact within the right p frontal region (series 801 image 20 ) as well as within the right parietal (1 image 18). These are nonspecific, may represent cavernomas, parenchymal microhemorrhages, or thromboses within venous structures. 4. A 9 mm T1 hypointense lesion, incompletely evaluated, within the left parotid gland (series 601 im age 1). [facility] Referring Provider Line: [phone] SITE ID: [id number]
--- NOTE | 2016-11-30 13:10 | MRI Preliminary Report ---
Exam: MRI Angio Brain W/O (MRA) IMPRESSION: 1. Status post coiling of aneurysm in the region of the left carotid terminus however, the current st udy demonstrates a laterally oriented patent aneurysm within the superior aspect of the coil mass keshia suring 8 mm in height and 7 mm in width (series 401 image 98), consistent with recanalized aneurysm. 2. 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 3. The visualized portions of the MCAs and ACAs bilaterally are without hemodynamically significant s tenosis. 4. The right posterior cerebral arteries unremarkable. 5. Focal high-grade, 70-80% narrowing of the P2 segment of the left DIRECTOR OF KIDS (series 401 image 100). Remai evi left DIRECTOR [employer]IDS is unremarkable. 6. No evidence of additional aneurysms. No evidence of intracranial vascular malformation, dissection , or definite occlusion. 7. The posterior communicating arteries are not clearly visualized on either side, likely hypoplastic or aplastic. [facility] SITE ID: [id number]
--- NOTE | 2016-11-30 13:13 | MRI Report ---
EXAM MRA BRAIN EXAM DATE: 11/30/2016 10:13 AM. CLINICAL HISTORY: History of aneurysm coiling. COMPARISON: CT head 11/29/2016 TECHNIQUE: Multiplanar, multisequence MRA sequences of the brain were performed. Other: None. Post-pr ocessing: Multiplanar 3D MIP reconstructions. IV Contrast: None. FINDINGS: RIGHT Internal Carotid (ICA): Atherosclerosis supraclinoid right ICA with 30-40% narrowing. Middle Cerebral (MCA): No aneurysm, stenosis or anomaly. Anterior Cerebral (KITTY): No aneurysm, stenosis or anomaly. Posterior Cerebral (CLIENT APPLICATION SUPPORT ENGINEER): No aneurysm, stenosis or anomaly. Posterior Communicating (P-COM): Visualized likely hypoplastic or aplastic. Vertebral: No aneurysm, stenosis or anomaly in the visualized upper vertebral artery. LEFT Internal Carotid (ICA): The patient is status post coiling of aneurysm in the region of the left palacios tid terminus however, the current study demonstrates a laterally oriented patent aneurysm within the superior aspect of the coil mass measuring 8 mm in height and 7 mm in width (series 401 image 98), co nsistent with recanalized aneurysm. There is moderate atherosclerosis supraclinoid left ICA with 30-4 0% narrowing. Middle Cerebral (MCA): No aneurysm, stenosis or anomaly. Anterior Cerebral (KITTY): No aneurysm, stenosis or anomaly. Posterior Cerebral (CLIENT APPLICATION SUPPORT ENGINEER): Focal high-grade, 70-80% narrowing of the P2 segment of the left CLIENT APPLICATION SUPPORT ENGINEER (serie s 401 image 100). Remaining left CLIENT APPLICATION SUPPORT ENGINEER is unremarkable. Posterior Communicating (P-COM): Not visualized, likely hypoplastic or aplastic. Vertebral: No aneurysm, stenosis or anomaly in the visualized upper vertebral artery. MIDLINE Anterior Communicating (A-COM): No aneurysm, stenosis or anomaly. Other: No vascular malformation or aneurysm is seen in the region of the right temporal occipital cor tical hemorrhage. IMPRESSION: 1. Status post coiling of aneurysm in the region of the left carotid terminus however, the current st udy demonstrates a laterally oriented patent aneurysm within the superior aspect of the coil mass keshia suring 8 mm in height and 7 mm in width (series 401 image 98), consistent with recanalized aneurysm. 2. 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 3. The visualized portions of the MCAs and ACAs bilaterally are without hemodynamically significant s tenosis. 4. The right posterior cerebral arteries unremarkable. 5. Focal high-grade, 70-80% narrowing of the P2 segment of the left CLIENT APPLICATION SUPPORT ENGINEER (series 401 image 100). Remai evi left CLIENT APPLICATION SUPPORT ENGINEER is unremarkable. 6. No evidence of additional aneurysms. No evidence of intracranial vascular malformation, dissection , or definite occlusion. 7. The posterior communicating arteries are not clearly visualized on either side, likely hypoplastic or aplastic. [facility] Referring Provider Line: [phone] SITE ID: [id number]
--- NOTE | 2016-11-30 13:18 | MRI Report ---
EXAM: MR ANGIOGRAM NECK WITHOUT CONTRAST EXAM DATE: 11/30/2016 11:39 AM. CLINICAL HISTORY: CVA. COMPARISON: None. TECHNIQUE: Multiplanar, multisequence MRA sequences of the neck were performed without intravenous co ntrast. Other: None. Post-processing: Multiplanar 3D MIP reconstructions. IV Contrast: None. Evaluat ion of arterial stenosis is based on a NASCET method of measurement. FINDINGS: This is a limited noncontrast evaluation of the arteries of the neck. RIGHT Common Carotid: Partially retropharyngeal course. Patent. No dissection or significant stenosis. Internal Carotid: Partially retropharyngeal course. Patent. No dissection or significant stenosis. External Carotid: Patent. No dissection or significant stenosis. Vertebral: Patent. No dissection or significant stenosis. LEFT Common Carotid: Partially retropharyngeal course. Patent. No dissection or significant stenosis. Internal Carotid: Partially retropharyngeal course. Patent. No dissection or significant stenosis. External Carotid: Patent. No dissection or significant stenosis. Vertebral: The left vertebral artery is dominant. Patent. No dissection or significant stenosis. Intracranial Circulation: Dictated separately. Other: The soft tissues, bones, and lung apices are within normal limits. IMPRESSION: 1. This study is limited due to absence of intravenous contrast material. Given this limitation, no d efinite moderate or severe stenosis, dissection, occlusion, aneurysm, or vascular malformation within the visualized arteries of the neck. 2. There is a partially retropharyngeal course of the common carotid arteries bilaterally and the pro ximal cervical internal carotid arteries bilaterally. 3. MRA of the head is dictated separately. [facility] Referring Provider Line: [phone] SITE ID: [id number]
[2016-11-30 13:36] VITALS: BP 133/78
--- NOTE | 2016-11-30 14:08 | DISCHARGE SUMMARY ---
DATE OF ADMISSION: 11/29/2016 DATE OF DISCHARGE: 11/30/2016 PRIMARY CARE PHYSICIAN: Ghazal Suazo M.D. ADMISSION DIAGNOSES The patient's admission diagnoses were: 1. Rapid ventricular rate atrial fibrillation, new onset. 2. Subacute medial right occipital lobe cerebrovascular accident with hemorrhagic transformation. 3. Hypertension (chronic) present on admission, with Neurology consult recommending blood pressure 14 0 to 160 systolic. 4. Elevated blood sugar present on admission. DISCHARGE DIAGNOSES 1. Rapid ventricular rate atrial fibrillation: Resolved. Continued atrial fibrillation, rate contro lled. 2. Subacute medial right occipital cerebrovascular accident, with hemorrhagic transformation: No fur ther hemorrhage after admission. 3. Hypertension, chronic, present on admission: Improved control. 4. Elevated blood pressure on admission with hemoglobin A1c of 7.4. Unclear if new onset, but the geetha smart does not appear to know that she is diabetic. No further instructions at this time. CONSULTATIONS: [facility] Neurology SPECIAL PROCEDURES The initial head CT had an impression of cortical high attenuation medial right occipital lobe, moises rning for gyriform or petechial hemorrhage, with hemorrhagic transformation of cerebral infarct. In the right occipital lobe, there was evidence of old posterior circulation infarctions with chronic en cephalomalacia. There was no subdural fluid collection or mass. A repeat head CT on 11/29/2016 revealed an impression of no significant interval change. There was r ight subcapital edema with a rounded mass of increased density, as previously prescribed, in addition to evolving infarct or contusion. Differential consideration should be given to an underlying tumor with edema. Followup is recommended for this possibility. An MRI of the head and MRA of the head and neck are pending at the time of discharge. Echocardiogram interpretation: 1. Severe concentric left ventricular hypertrophy. 2. The right ventricle is normal size and function. 3. Contrast injection of agitated saline was negative for an atrial shunt. 4. No hemodynamically significant cardiac valve disease noted. HOSPITAL COURSE AND MANAGEMENT: The initial presentation, hospital evaluation, and hospitalist plan were well described in the history and physical. See a copy of the same. SUMMARY: The patient is a 66-year-old female with a past medical history significant for hypertensio n. She also had a brain aneurysm that was coiled in 2007 at [facility]. This left her with a left-s ided disconjugate gait problem. The patient had onset of a generalized headache. She was discovered to have RVR with atrial fibrillation, without a history in the past of atrial fibrillation. The hea d CT showed the findings as noted above, and therefore, the patient was admitted to the hospital. Af ter a discussion with [facility]rology and Neurosurgery, the recommendation was to not given any antiplatelet for the next 24 hours. They recommended initiating oral anticoagulants in one to two we eks. The patient had no further symptoms. She was ambulatory without help. She had no other untowa rd events during her hospitalization. PHYSICAL EXAMINATION VITAL SIGNS: On the day of discharge, her vital signs were 36.7, heart rate 90, 133/96, 16, and 96% room air saturation. EYES: She has a disconjugate noted. No scleral icterus noted. CONSTITUTIONAL: A well-developed, well-nourished female. She appears her stated age. NECK: The patient's neck is supple and nontender. No lymphadenopathy. No thyromegaly. CHEST: Irregular rhythm. EKG showed atrial fibrillation. The patient's lungs are clear, with good air movement. ABDOMEN: Thick abdominal wall. Soft and nontender. RECTAL/GENITAL: No rectal or genital exam. No breast exam done. EXTREMITIES: The patient's extremities are without edema. NEUROLOGIC: Cognition is intact. Motor is intact. Cranial nerves reveal she has a disconjugate gaz e, but are otherwise normal. DIAGNOSTIC STUDIES: The patient's glucose was monitored during the stay. It was noted that she had a glycohemoglobin of 7.4. She had a lipid panel with triglycerides 135, cholesterol 215, LDL 146, an d HDL 42. The patient did have a TSH of 21. Neither the patient or her told this physician she was on thyroid a couple of years ago and q uit taking it after six months. The patient was restarted. This was restarted at 25 mcg a day, whic h she should continue for 10 days, and then to 50 mcg a day, with a TSH repeat in six to eight weeks. ALLERGIES THE PATIENT HAS ALLERGIES TO 1. LISINOPRIL. 2. AMLODIPINE BESYLATE. MEDICATIONS This patient is on: 1. Losartan 100 mg a day. 2. Potassium 10 mEq a day. 3. Metoprolol 100 mg b.i.d. 4. Doxazosin 8 mg at night. 5. Aspirin 325 mg at bedtime. 6. Digoxin 250 mcg daily. 7. Levoxyl 25 mcg every a.m. for 10 days, and then increase to 50 mcg daily. FOLLOWUP: The patient is to follow up with Ghazal Suazo M.D., in one to two weeks. FOLLOWUP ISSUES ARE 1. Possible transitioned to a full anticoagulant. 2. Neurology followup. 3. Repeat CT or MRI. However, the MRI results are pending at the time of this dictation, and this ma y not be needed if the MRI gives a more definitive explanation of the lesion in the right occiput. 4. Repeating the TSH, as noted above. 5. Considering a statin, which should also be discussed in light of the hemorrhage and with consultat ion from Neurology. 6. Finally, the control of her diet and consideration for an adjunct agent if that fails for controll ing her diabetes and a target of hemoglobin A1c of 7 or less. DISCHARGE CONDITION: The patient was examined on the day of discharge, as noted above. TIME SPENT: The time spent in discharge activities with patient and education, and with Nurs ing and Case Management collaboration was 40 minutes. JOB #: [id number] EXT JOB #:[id number]
== END 2016-11-30 13:05 | disposition home or self-care (01) | DRG 308 ==
LOC: ED 19:02 → MS 11-29 00:19
PROVIDERS: ADMIT Specialist; ATTEND Internal Medicine
DX: I48.91 Unspecified atrial fibrillation (principal); I61.9 Nontraumatic intracerebral hemorrhage, unspecified; I15.9 Secondary hypertension, unspecified; E11.9 Type 2 diabetes mellitus without complications; Z86.79 Personal history of other diseases of the circulatory system
CPT/HCPCS: 36415; 70450; 70544; 70547; 70551; 71010; 80053; 80061; 80162; 83036; 83690; 83735; 83880; 84443; 84484; 85025; 85651; 93005; 93010; 93306; 96374; 96376; 99285

== ENCOUNTER 2017-07-21 10:11 | Inpatient (IN) | payer OTHER ==
--- NOTE | 2017-07-21 10:32 | ED Physician Documentation ---
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 [facility] - no blood thinners no fall or injury Review of Systems Constitutional: reports: Fever Throat: denies: Sore throat Cardiac: denies: Chest pain / pressure Respiratory: denies: Dyspnea GI: denies: Abdominal Pain, Nausea, Vomiting, Diarrhea : denies: Dysuria Neurologic: denies: Headache, Head injury Endocrine: denies: Easy bruising / bleeding Immunocompromised: denies: Immunocompromised PD PAST MEDICAL HISTORY - Past Medical History Cardiovascular: Hypertension Respiratory: Sleep apnea Neuro: Headache/migraine, Other GI: None CURRENCY EXCHANGE SPECIALIST: None : None HEENT: None Psych: None Musculoskeletal: None Derm: None - Past Surgical History Past Surgical History: Yes - Present Medications Home Medications: Ambulatory Orders Medication Instructions Recorded Confirmed Potassium Chloride 10 meq PO DAILYWM 01/11/13 07/21/17 Doxazosin Mesylate 8 mg PO QPM 11/29/16 07/21/17 Losartan Potassium [Cozaar] 100 mg PO DAILY 11/29/16 07/21/17 Metoprolol Tartrate [Lopressor] 100 mg PO BID 11/29/16 07/21/17 Aspirin 325 mg PO QDBREAKFAST #30 tablet 11/30/16 07/21/17 Digoxin [Lanoxin] 250 mcg PO DAILY 11/30/16 07/21/17 Levothyroxine Sodium [Synthroid] 25 mcg PO QDAC 11/30/16 11/30/16 Rosuvastatin Calcium [Crestor] 07/21/17 metFORMIN [Glucophage] 500 mg PO BIDWM 07/21/17 07/21/17 - Allergies Allergies/Adverse Reactions: Allergies Allergy/AdvReac Type Severity Reaction Status Date / Time lisinopril Allergy Severe Respiratory Verified 11/28/16 19:09 amlodipine besylate * AdvReac Intermediate Edema Verified 11/28/16 19:09 [From [facility]] - Social History Does the pt smoke?: No Smoking Status: Never smoker Does the pt drink ETOH?: No Does the pt have substance abuse?: No - Immunizations Immunizations are current?: Yes - POLST Patient has POLST: No PD ED PE NORMAL - Vitals Vital signs reviewed: Yes - General General: No: Alert and oriented X 3 (unresponsive to voice and pain) - HEENT HEENT: Atraumatic, PERRL (4) - Neck Neck: Supple, no meningeal sign - Cardiac Cardiac: RRR - Respiratory Respiratory: Other (ronchi billie R > L, diminished on but + breath sounds) - Abdomen Abdomen: Soft, Non tender - Derm Derm: Normal color - Extremities Extremities: No deformity - Neuro Neuro: No: Alert and oriented X 3 Results - Vitals Vitals: Vital Signs - 24 hr 07/21/17 07/21/17 07/21/17 10:15 11:00 12:00 Temperature 39.2 C H 38.9 C H Heart Rate 85 83 77 Respiratory 18 28 H 22 Rate Blood Pressure 171/72 H 159/69 H 140/75 H O2 Saturation 86 L 98 98 07/21/17 13:07 Temperature 38 C H Heart Rate 86 Respiratory 26 H Rate Blood Pressure 144/63 H O2 Saturation 98 Oxygen O2 Source Nasal cannula Oxygen Flow Rate 4 - EKG (time done) 1025 Rate: Rate (enter#) (70) Rhythm: Atrial fibrillation Ischemia: Q waves (III V1), Other (possible coving ST elev ant leads but with assoc Q waves, ST depr lateral could be dig effect) Other comments: Other comments (similar to prior EKG perhaps ST seg are a bit more coved ant) - Labs Labs: Laboratory Tests 07/21/17 07/21/17 07/21/17 10:55 10:55 10:55 WBC 7.5 RBC 4.15 L Hgb 12.4 Hct 36.0 L MCV 86.7 MCH 29.9 MCHC 34.5 RDW 15.6 H Plt Count 121 L MPV 7.6 L Neut # 6.0 Lymph # 0.6 L [place] # 0.9 Eos # 0.0 Baso # 0.1 Absolute Nucleated RBC 0.00 Nucleated RBC % 0.0 PT INR Sodium 139 Potassium 3.1 L Chloride 98 L Carbon Dioxide 25 Anion Gap 16.0 H BUN 18 Creatinine 0.9 Estimated GFR (MDRD) 63 L Glucose 146 H Glycated Hemoglobin Estim Average Glucose Lactic Acid Calcium 9.7 Total Bilirubin 1.5 H AST 27 ALT 20 Alkaline Phosphatase 77 Troponin I 0.07 Total Protein 7.5 Albumin 4.1 Globulin 3.4 Albumin/Globulin Ratio 1.2 Lipase 35 Urine Color Urine Clarity Urine pH Ur Specific [place] Urine Protein Urine Glucose (UA) Urine Ketones Urine Occult Blood Urine Nitrite Urine Bilirubin Urine Urobilinogen Ur Leukocyte Esterase Urine RBC Urine WBC Ur Squamous Epith Cells Amorphous Sediment Urine Bacteria Ur Microscopic Review Urine Culture Comments Last Dose Date Last Dose Time Digoxin Influenza A (Rapid) Influenza B (Rapid) Influenza Types A,B Ag 07/21/17 07/21/17 07/21/17 10:55 10:55 10:55 WBC RBC Hgb Hct MCV MCH MCHC RDW Plt Count MPV Neut # Lymph # [place] # Eos # Baso # Absolute Nucleated RBC Nucleated RBC % PT 17.4 H INR 1.6 H Sodium Potassium Chloride Carbon Dioxide Anion Gap BUN Creatinine Estimated GFR (MDRD) Glucose Glycated Hemoglobin Estim Average Glucose Lactic Acid 1.3 Calcium Total Bilirubin AST ALT Alkaline Phosphatase Troponin I Total Protein Albumin Globulin Albumin/Globulin Ratio Lipase Urine Color Urine Clarity Urine pH Ur Specific [place] Urine Protein Urine Glucose (UA) Urine Ketones Urine Occult Blood Urine Nitrite Urine Bilirubin Urine Urobilinogen Ur Leukocyte Esterase Urine RBC Urine WBC Ur Squamous Epith Cells Amorphous Sediment Urine Bacteria Ur Microscopic Review Urine Culture Comments Last Dose Date Unknown Last Dose Time Unknown Digoxin 1.3 Influenza A (Rapid) Influenza B (Rapid) Influenza Types A,B Ag 07/21/17 07/21/17 07/21/17 10:55 10:55 10:55 WBC RBC Hgb Hct MCV MCH MCHC RDW Plt Count MPV Neut # Lymph # [place] # Eos # Baso # Absolute Nucleated RBC Nucleated RBC % PT INR Sodium Potassium Chloride Carbon Dioxide Anion Gap BUN Creatinine Estimated GFR (MDRD) Glucose Glycated Hemoglobin 6.5 H Estim Average Glucose 140 H Lactic Acid Calcium Total Bilirubin AST ALT Alkaline Phosphatase Troponin I Total Protein Albumin Globulin Albumin/Globulin Ratio Lipase Urine Color YELLOW Urine Clarity CLEAR Urine pH 6.0 Ur Specific [place] 1.025 Urine Protein 30 H Urine Glucose (UA) NEGATIVE Urine Ketones 15 H Urine Occult Blood MODERATE H Urine Nitrite NEGATIVE Urine Bilirubin NEGATIVE Urine Urobilinogen 0.2 (NORMAL) Ur Leukocyte Esterase NEGATIVE Urine RBC 0-5 Urine WBC 0-3 Ur Squamous Epith Cells FEW Squamous Amorphous Sediment Few Urine Bacteria Rare Ur Microscopic Review INDICATED Urine Culture Comments NOT INDICATED Last Dose Date Last Dose Time Digoxin Influenza A (Rapid) POSITIVE H Influenza B (Rapid) Negative Influenza Types A,B Ag + H - Rads (name of study) CXR Radiology: See rad report echo Radiology: See rad report (report received after called for admit - a fib, EF > 75%, inc LA volume, thickened mitral valve, severely abn R heart pressure increased from prior echo, no septal bowing or dilated IVC mentioned, nl aorta, no effusion - showed report to hospitalist service) PD MEDICAL DECISION MAKING - ED course ED course: 66 female cough for three days now with AMS and hypoxia flu A + CXR showed cardiomegaly so got echo - also per rad possible patchy in filtrates vs atelectasis vs edema pt given tamiflu and apap and will admit echo report pending at time of admit - showed to hospitalist when available Departure - Departure Disposition: 68 [facility] DC/Xfer Clinical Impression: Influenza A, Hypoxia, Cardiomegaly, Abnormal echocardiogram Altered mental status Qualifiers: Altered mental status type: unspecified Qualified Code(s): R41.82 - Altered mental status, unspecified Condition: Fair Discharge Date/Time: 07/21/17 15:14
[2017-07-21] MEDS ORDERED: SODIUM CHLORIDE 0.9% 1,000 ML IV ONE (10:33)
[2017-07-21] MEDS ORDERED: ACETAMINOPHEN 325 MG TABLET PO STA (10:47)
[2017-07-21] MEDS ORDERED: ACETAMINOPHEN 650 MG SUPP PR STA (11:04)
[2017-07-21 11:08] LABS: BASOPHILS # (AUTO) 0.1 10^3/uL (0.0-0.1); BASOPHILS % (AUTO) 0.8 %; EOSINOPHILS % (AUTO) 0.2 %; HGB - HEMOGLOBIN 12.4 g/dL (12.0-16.0); LYMPHOCYTES # (AUTO) 0.6 10^3/uL (1.5-3.5); LYMPHOCYTES % (AUTO) 7.7 %; MEAN CORPUSCULAR HEMOGLOBIN 29.9 pg (27.0-31.0); MEAN CORPUSCULAR HGB CONC 34.5 g/dL (32.0-36.0); MEAN CORPUSCULAR VOLUME 86.7 fL (81.0-99.0); MEAN PLATELET VOLUME 7.6 fL (7.9-10.8); MONOCYTES # (AUTO) 0.9 10^3/uL (0.0-1.0); MONOCYTES % (AUTO) 11.7 %; NEUTROPHILS % (AUTO) 79.6 %; PLT - PLATELET COUNT 121 10^3/uL (130-450); RED BLOOD COUNT 4.15 10^6/uL (4.20-5.40); RED CELL DISTRIBUTION WIDTH 15.6 % (12.0-15.0); WHITE BLOOD COUNT 7.5 x10^3/uL (4.8-10.8)
[2017-07-21 11:09] LABS: BILIRUBIN,URINE NEGATIVE (NEGATIVE); GLUCOSE, URINE (UA) NEGATIVE (NEGATIVE); KETONES,URINE (UA) 15 mg/dL (NEGATIVE); LEUKOCYTE ESTERASE, URINE NEGATIVE (NEGATIVE); NITRITE,URINE NEGATIVE (NEGATIVE); OCCULT BLOOD,URINE MODERATE (NEGATIVE); PROTEIN,URINE 30 mg/dL (NEGATIVE); UROBILINOGEN,URINE 0.2 (NORMAL) E.U./dL (NORMAL)
[2017-07-21 11:15] LABS: INR 1.6 (0.8-1.2); PT - PROTHROMBIN TIME 17.4 secs (9.9-12.6)
[2017-07-21 11:16] LABS: ALBUMIN 4.1 g/dL (3.2-5.5); ALBUMIN/GLOBULIN RATIO 1.2 (1.0-2.2); BILIRUBIN,TOTAL 1.5 mg/dL (0.2-1.0); CALCIUM 9.7 mg/dL (8.5-10.3); CREATININE 0.9 mg/dL (0.4-1.0); TOTAL PROTEIN 7.5 g/dL (6.7-8.2)
[2017-07-21 11:17] LABS: CLARITY,URINE CLEAR (CLEAR)
[2017-07-21 11:22] LABS: AMORPHOUS SEDIMENT,UR Few /LPF; BACTERIA,URINE Rare /HPF (None Seen); RBC,URINE 0-5 /HPF (0-5); SQUAMOUS EPITHELIAL CELL,UR FEW Squamous (<= Few)
[2017-07-21 11:31] LABS: DIGOXIN 1.3 ng/mL
--- NOTE | 2017-07-21 11:43 | XRAY Report ---
EXAM: CHEST RADIOGRAPHY EXAM DATE: 07/21/2017 11:27 AM. CLINICAL HISTORY: Altered mental status. COMPARISON: Previous exam of 11/28/2016. TECHNIQUE: 1 view. FINDINGS: Lungs/Pleura: There is hypoventilation. Mild pulmonary edema pattern present, with suggestion of biba silar infiltrate versus atelectasis. Mediastinum: Within exam limitations, the cardiomediastinal contour is normal. Other: None. IMPRESSION: Developing mild pulmonary edema pattern with bibasilar infiltrate versus atelectasis. [facility] Referring Provider Line: [phone] SITE ID: [id number]
[2017-07-21] MEDS ORDERED: OSELTAMIVIR 75 MG CAPSULE PO STA (12:10)
[2017-07-21] MEDS ORDERED: SODIUM CHLORIDE FLUSH 0.9% 10 ML SYRINGE IVP PRN (14:24)
[2017-07-21] MEDS ORDERED: ACETAMINOPHEN 325 MG TABLET PO PRN (14:24)
[2017-07-21] MEDS ORDERED: ONDANSETRON 4 MG/2 ML VIAL IVP PRN (14:24)
[2017-07-21] MEDS ORDERED: cefTRIAXone 1 GM VIAL IVP SCH (14:31)
--- NOTE | 2017-07-21 15:04 | HISTORY & PHYSICAL EXAMINATION ---
Chief Complaint - Chief Complaint Chief Complaint: cough and weakness History of Present Illness - Admitted From Admitted From:: ER - History Obtained From History obtained from: - History of Present Illness HPI Comment/Other: This is a 66-year-old female with a past medical history significant for brain aneurysm, subsequential bilateral vision some loss, dipolpia, Afib, subacute CVA , HTN, hypothyroidism, urinary incontinence, DM2, who present ER for cough for three days, lethargic and weakness. Pt is lethargic, did not response to questions. Her at the bedside. He report her started to have dry cough in this Saturday, but denies noted fever and chill. Today she became lethargic, can not stand, and became urinary incontinence. pt denies chest pain , shortness of breath, headache, abdominal pain, nausea, vomiting, diarrhea. Pt is febrile at 38.9 on ER. Influenza test shows positive A, and A/B Ag positive. hypokalemia at 3.1. CXR reveals mild pulmonary edema patter with bibasilar infiltrate versus atelectasis. History - Past Medical History Cardiovascular: reports: Hypertension Respiratory: reports: Sleep apnea Neuro: reports: Headache/migraine, Other GI: reports: None PROGRAM ARRANGER: reports: None : reports: None HEENT: reports: None Psych: reports: None Musculoskeletal: reports: None Derm: reports: None MRSA Hx?: No - Family & Social History Family History Comment/Other: pt is living with her in [place], has three children. Living arrangement: At home Living Situation: With spouse/s.o., With family - Substance History Use: Uses substance without health or social issues: NONE Abuse: Recurrent use of substance despite neg consequences: NONE Dependence: Experiences withdrawal or developed tolerances: NONE - POLST Patient has POLST: No POLST Status: Full Code Meds/Allgy - Home Medications Home Medications: Ambulatory Orders Medication Instructions Recorded Confirmed Potassium Chloride 10 meq PO DAILYWM 01/11/13 11/29/16 Doxazosin Mesylate 8 mg PO QPM 11/29/16 11/29/16 Losartan Potassium [Cozaar] 100 mg PO DAILY 11/29/16 11/29/16 Metoprolol Tartrate [Lopressor] 100 mg PO BID 11/29/16 11/29/16 Aspirin 325 mg PO QDBREAKFAST #30 tablet 11/30/16 Digoxin [Lanoxin] 250 mcg PO DAILY 11/30/16 11/30/16 Levothyroxine Sodium [Synthroid] 25 mcg PO QDAC 11/30/16 11/30/16 Rosuvastatin Calcium [Crestor] 07/21/17 metFORMIN [Glucophage] 500 mg PO BIDWM 07/21/17 07/21/17 - Allergies Allergies/Adverse Reactions: Allergies Allergy/AdvReac Type Severity Reaction Status Date / Time lisinopril Allergy Severe Respiratory Verified 11/28/16 19:09 amlodipine besylate * AdvReac Intermediate Edema Verified 11/28/16 19:09 [From [facility]] Review of Systems - Constitutional Constitutional: reports: Fatigue, Malaise, Weakness, Poor appetite. denies: Fever, Chills, Diaphoresis, Night sweats - Eyes Eyes: reports: Dipolpia. denies: Pain, Irritation, Amaurosis, Blurred vision, Spots in vision, Field loss, Vision loss - Ears, Nose & Throat Ears, Nose & Throat: denies: Ear pain, Hearing loss, Hearing aids, Tinnitus, Vertigo, Nasal pain, Nasal discharge, Nosebleeds, Nasal congestion, Sore throat , Mouth lesions, Bleeding gums - Cardiovascular Cariovascular: denies: Irregular heart rate, Palpitations, Chest pain, Edema, Lightheadedness, Syncope, Exertional dyspnea, Decr. exercise tolerance - Respiratory Respiratory: reports: Cough, Sputum production. denies: Wheezing, Snoring, Hemoptysis, Orthopnea, SOB at rest, SOB with exertion, Apnea, Stridor - Gastrointestinal Gastrointestinal: reports: Poor appetite. denies: Abdominal pain, Abdominal distention, Constipation, Diarrhea, Change in bowel habits, Rectal bleeding, Black stools, Bloody stools, Bart blood emesis, Coffee grounds emesis - Genitourinary Genitourinary: reports: Incontinence. denies: Dysuria, Frequency, Urgency, Hematuria, Flank pain, Nocturia - Musculoskeletal Musculoskeletal: denies: Muscle pain, Back pain, Muscle aches, Stiffness, Limited range of motion, Muscle weakness - Integumentary Integumentary: denies: Rash, Pruritis, Lesions, Dryness, Lumps, Acne, Pigment changes - Neurological Neurological: reports: General weakness. denies: Focal weakness, Headache, Dizziness, Numbness, Memory problems, Pre-existing deficit, Abnormal gait, Seizures, Incoordination, Slurred speech - Psychiatric Psychiatric: denies: Depression, Anxiety, Suicidal, Delusions, Hallucinations, Homicidal - Endocrine Endocrine: denies: Polyuria, Polydypsia, Polyphagia, Intolerance to cold - Hematologic/Lymphatic Hematologic/Lymphatic: denies: Anemia, Bruising, Petechiae, Blood clots, Lymphadenopathy, Bleeding tendencies Exam - Vital Signs Reviewed Vital Signs: Yes Vital Signs: Vital Signs x48h Temp Pulse Resp BP Pulse Ox 07/21/17 14:58 36.3 C L 82 27 H 137/57 H 96 - Physical Exam General Appearance: positive: No acute distress, Alert. negative: Lethargic Eyes Bilateral: positive: Normal inspection, PERRL, No lid inflammation, Conjunctivae nml ENT: positive: ENT inspection nml, Pharynx nml, No signs of dehydration. negative: Purulent nasal drainage, Pharyngeal erythema, Oral lesions Neck: positive: Nml inspection, Thyroid nml, No JVD, Trachea midline. negative : Thyromegaly, Lymphadenopathy (R), Lymphadenopathy (L), Stiff neck, Carotid bruit, Swelling/bruising, Tracheal deviation Respiratory: positive: Chest non-tender, No respiratory distress, Rhonchi. negative: Wheezes, Rales Cardiovascular: positive: Regular rate & rhythm, No murmur, No gallop. negative : Irregularly irregular, Extrasystoles, Tachycardia, Bradycardia, Systolic murmur, Diastolic murmur Peripheral Pulses: positive: 2+ Abdomen: positive: Non-tender, No organomegaly, Nml bowel sounds, No distention. negative: Tenderness, Guarding, Rebound Back: positive: Nml inspection. negative: CVA tenderness (R), CVA tenderness (L ) Skin: positive: Color nml, No rash, Warm, Dry. negative: Cyanosis, Diaphoresis , Pallor, Skin rash Extremities: positive: Non-tender, Full ROM, Nml appearance. negative: Calf tenderness, Joint swelling, Nabeel's sign/cords Neurologic/Psychiatric: positive: Mood/affect nml. negative: Sensory loss, Facial droop, Slurred/abnml speech Conclusion/Plan - Problem List (1) Pneumonia Conclusion/Plan: pt had fever, Lung sound appears cracker special at right lower lobe, CXR reveals bilateral infiltrate Azithyomycin Rocephin follow up blood culture IVF (2) Influenza A Conclusion/Plan: pt's pt started to have symptoms on 3 days ago. Influenza test positive on Influenza A Tamiflu IVF (3) History of CVA (cerebrovascular accident) Conclusion/Plan: pt had hx of CVA, and with Afib, and brain aneurysm, pt lethargic today CT of brain resume home meds Aspirin Neuro check lab daily, vital monitor (4) DM2 (diabetes mellitus, type 2) Conclusion/Plan: resume home meds check A1C slide scale ACHS, Hypoglycemia protocol (5) HTN (hypertension) Conclusion/Plan: stable, resume home mes vital monitor (6) Hypokalemia Conclusion/Plan: K is 3.1 today, replace potassium (7) Hypothyroidism Conclusion/Plan: will resume home meds, check TSH (8) Altered mental state Conclusion/Plan: pt is some lethargic, with hx of subacute CVA, afib, and brain aneurysm CT of head test of B12, TSH (9) DVT prophylaxis Conclusion/Plan: SCD and Lovenox (10) Full code status Conclusion/Plan: full code status - Lab Results Fish Bones: 07/21/17 10:55 07/21/17 10:55 Core Measures - Anticipated LOS I expect patient to be DC'd or transferred within 96 hours.: Yes
[2017-07-21] MEDS: guaiFENesin 600 MG TABLET PO SCH (16:23)
[2017-07-21] MEDS: AZITHROMYCIN INJ 500 MG in SODIUM CHLORIDE 0.9% 250 ML IV SCH (16:23)
[2017-07-21] MEDS: SODIUM CHLORIDE 0.9% 1,000 ML IV SCH (16:23)
[2017-07-21] MEDS ORDERED: POTASSIUM CHLORIDE 20 MEQ TABLET PO ONE (17:00)
[2017-07-21] MEDS: cefTRIAXone 1 GM in SODIUM CHLORIDE 0.9% MINIBAG 100 ML IV SCH (17:53)
[2017-07-21 17:58] LABS: HB2 TOTAL 13.2 g/dL; HEMOGLOBIN A1C 0.63 g/dL; HEMOGLOBIN A1C % 6.5 % (4.6-6.2)
[2017-07-21] MEDS: INSULIN ASPART 300 UNIT/3 ML PEN SUBQ SCH (20:46)
[2017-07-21] MEDS: SODIUM CHLORIDE FLUSH 0.9% 10 ML SYRINGE IVP SCH (21:03)
[2017-07-21] MEDS: DOXAZOSIN 4 MG TABLET PO SCH (21:03)
[2017-07-21] MEDS: OSELTAMIVIR 30 MG CAPSULE PO SCH (21:03)
[2017-07-21] MEDS: METOPROLOL TARTRATE 50 MG TABLET PO SCH (21:28)
--- NOTE | 2017-07-21 22:04 | CT Preliminary Report ---
Exam: CT HEAD W/O IMPRESSION: 1. No evidence of hemorrhage, mass, or other acute abnormality. 2. Remote right [employer]UT BAT[employer] M[employer]ER infarct. 3. Mild microvascular change. [facility] SITE ID: [id number]
--- NOTE | 2017-07-21 22:04 | CT Report ---
EXAM: CT HEAD EXAM DATE: 07/21/2017 06:11 PM. CLINICAL HISTORY: Lethargic, unresponsive. COMPARISON: Brain MRI 11/30/[address] 11/29/2016. TECHNIQUE: Multiaxial CT images were obtained from the foramen magnum to the vertex. Reformats: Coron al. IV contrast: None. In accordance with CT protocol optimization, one or more of the following dose reduction techniques w ere utilized for this exam: automated exposure control, adjustment of mA and/or KV based on patient s ize, or use of iterative reconstructive technique. FINDINGS: Parenchyma: No intraparenchymal hemorrhage. Patient status post remote right occipital infarct. Again patient status post prior aneurysm coiling with coil mass in left suprasellar region. Right basal ga nglia calcifications. There are areas of low-density involving white matter of the cerebral hemispher es. No new areas of loss zarate-white differentiation. Extraaxial Spaces: Normal for age. No subdural or epidural collections identified. Ventricles: Normal in size and position. Sinuses and Orbits: Imaged paranasal sinuses, orbits, and mastoids show no significant abnormality. Bones: No evidence of fracture or calvarial defect. Other: None. IMPRESSION: 1. No evidence of hemorrhage, mass, or other acute abnormality. 2. Remote right [employer] infarct. 3. Mild microvascular change. [facility] Referring Provider Line: [phone] SITE ID: [id number]
[2017-07-22] MEDS: SODIUM CHLORIDE FLUSH 0.9% 10 ML SYRINGE IVP SCH ×3 (05:29→20:21)
[2017-07-22] MEDS: SODIUM CHLORIDE 0.9% 1,000 ML IV SCH ×2 (06:14→20:21)
[2017-07-22 06:35] LABS: BASOPHILS % (AUTO) 0.4 %; EOSINOPHILS % (AUTO) 0.1 %; HGB - HEMOGLOBIN 11.4 g/dL (12.0-16.0); LYMPHOCYTES # (AUTO) 1.1 10^3/uL (1.5-3.5); LYMPHOCYTES % (AUTO) 22.3 %; MEAN CORPUSCULAR HEMOGLOBIN 29.8 pg (27.0-31.0); MEAN CORPUSCULAR HGB CONC 32.5 g/dL (32.0-36.0); MEAN CORPUSCULAR VOLUME 91.7 fL (81.0-99.0); MEAN PLATELET VOLUME 7.8 fL (7.9-10.8); MONOCYTES # (AUTO) 0.7 10^3/uL (0.0-1.0); MONOCYTES % (AUTO) 14.5 %; NEUTROPHILS # (AUTO) 3.2 10^3/uL (1.5-6.6); NEUTROPHILS % (AUTO) 62.7 %; PLT - PLATELET COUNT 103 10^3/uL (130-450); RED BLOOD COUNT 3.84 10^6/uL (4.20-5.40); RED CELL DISTRIBUTION WIDTH 16.3 % (12.0-15.0); WHITE BLOOD COUNT 5.1 x10^3/uL (4.8-10.8)
[2017-07-22 06:47] LABS: ALBUMIN 3.4 g/dL (3.2-5.5); ALBUMIN/GLOBULIN RATIO 1.1 (1.0-2.2); BILIRUBIN,TOTAL 0.9 mg/dL (0.2-1.0); CALCIUM 8.2 mg/dL (8.5-10.3); MAGNESIUM 1.6 mg/dL (1.7-2.8); TOTAL PROTEIN 6.5 g/dL (6.7-8.2)
[2017-07-22 07:04] LABS: DIGOXIN 1.4 ng/mL
[2017-07-22] MEDS ORDERED: POTASSIUM CHLORIDE 20 MEQ TABLET PO ONE (07:27)
[2017-07-22] MEDS ORDERED: cefTRIAXone 1 GM VIAL IVP SCH (09:00)
[2017-07-22] MEDS: OSELTAMIVIR 30 MG CAPSULE PO SCH ×2 (09:59→20:21)
[2017-07-22] MEDS: MAGNESIUM OXIDE 400 MG TABLET PO SCH (10:00)
[2017-07-22] MEDS: FAMOTIDINE 20 MG TABLET PO SCH (10:00)
[2017-07-22] MEDS: LOSARTAN 50 MG TABLET PO SCH (10:00)
[2017-07-22] MEDS: POTASSIUM CHLORIDE 10 MEQ CAPSULE PO SCH (10:01)
[2017-07-22] MEDS: guaiFENesin 600 MG TABLET PO SCH ×2 (10:01→20:21)
[2017-07-22] MEDS: DIGOXIN 125 MCG TABLET PO SCH (10:04)
[2017-07-22] MEDS: INSULIN ASPART 300 UNIT/3 ML PEN SUBQ SCH ×4 (10:05→21:41)
[2017-07-22] MEDS: ASPIRIN 325 MG TABLET PO SCH (10:05)
[2017-07-22] MEDS: cefTRIAXone 1 GM in SODIUM CHLORIDE 0.9% MINIBAG 100 ML IV SCH (10:05)
[2017-07-22] MEDS: ENOXAPARIN 40 MG/0.4 ML SYRINGE SUBQ SCH (10:08)
[2017-07-22] MEDS: METOPROLOL TARTRATE 50 MG TABLET PO SCH ×2 (10:09→20:21)
[2017-07-22] MEDS: POLYETHYLENE GLYCOL 3350 17 GM PACKET PO SCH (10:11)
[2017-07-22] MEDS: AZITHROMYCIN INJ 500 MG in SODIUM CHLORIDE 0.9% 250 ML IV SCH (10:44)
--- NOTE | 2017-07-22 11:12 | PROVIDER PROGRESS NOTE ---
Subjective - Prog Note Date Prog Note Date: 07/22/17 - Subjective Pt reports feeling: Improved Subjective: pt report she feel much better than yesterday. No chest pain, headache, abdominal pain reported Current Medications - Current Medications Current Medications: Active Medications Acetaminophen (Tylenol) 650 mg PO Q4HR PRN PRN Reason: Pain 1 to 4 Last Admin: 07/22/17 01:15 Dose: 650 mg Aspirin (Jermain) 325 mg PO QDBREAKFAST [facility] [place] Last Admin: 07/22/17 10:05 Dose: 325 mg Atorvastatin Calcium (Lipitor) 20 mg PO QPM [facility] [place] Digoxin (Lanoxin) 250 mcg PO DAILY [facility] [place] Last Admin: 07/22/17 10:04 Dose: 250 mcg Doxazosin Mesylate (Cardura) 8 mg PO QPM [facility] [place] Last Admin: 07/21/17 21:03 Dose: 8 mg Enoxaparin Sodium (Lovenox) 40 mg SUBQ DAILY [facility] [place] Last Admin: 07/22/17 10:08 Dose: 40 mg Famotidine (Pepcid) 20 mg PO DAILY [facility] [place] Last Admin: 07/22/17 10:00 Dose: 20 mg Guaifenesin (Mucinex) 600 mg PO BID [facility] [place] Last Admin: 07/22/17 10:01 Dose: 600 mg Sodium Chloride (Normal Saline 0.9%) 1,000 mls @ 85 mls/hr IV .[id number] [facility] [place] Last Admin: 07/22/17 06:14 Dose: 85 mls/hr Azithromycin 500 mg/ Sodium (Chloride) 250 mls @ 250 mls/hr IV DAILY@1000 [facility] [place] Last Admin: 07/22/17 10:44 Dose: 250 mls/hr Ceftriaxone Sodium 1 gm/ (Sodium Chloride) 100 mls @ 200 mls/hr IV DAILY [facility] [place] Last Infusion: 07/22/17 10:45 Dose: Infused Insulin Aspart (Novolog) 1 - 5 unit SUBQ 0800,1200,1700,2100 [facility] [place] PRN Reason: Protocol Last Admin: 07/22/17 10:05 Dose: Not Given Losartan Potassium (Cozaar) 100 mg PO DAILY [facility] [place] Last Admin: 07/22/17 10:00 Dose: 100 mg Magnesium Oxide (Mag Ox) 400 mg PO DAILYWM [facility] [place] Last Admin: 07/22/17 10:00 Dose: 400 mg Metoprolol Tartrate (Lopressor) 100 mg PO BID [facility] [place] Last Admin: 07/22/17 10:09 Dose: Not Given Ondansetron HCl (Zofran Inj) 4 mg IVP Q6HR PRN PRN Reason: Nausea / Vomiting Oseltamivir Phosphate (Tamiflu) 30 mg PO BID [facility] [place] Stop: 07/25/17 21:01 Last Admin: 07/22/17 09:59 Dose: 30 mg Polyethylene Glycol (Miralax) 17 gm PO DAILY [facility] [place] Last Admin: 07/22/17 10:11 Dose: Not Given Potassium Chloride (Micro-K) 10 meq PO DAILYWM [facility] [place] Last Admin: 07/22/17 10:01 Dose: 10 meq Sodium Chloride (Normal Saline Flush 0.9%) 10 ml IVP PRN PRN PRN Reason: NEEDED PER PROVIDER ORDERS Sodium Chloride (Normal Saline Flush 0.9%) 10 ml IVP Q8HR [facility] [place] Last Admin: 07/22/17 05:29 Dose: Not Given Potassium Chloride 10 meq PO DAILYWM 01/11/13 Doxazosin Mesylate 8 mg PO QPM 11/29/16 Losartan Potassium [Cozaar] 100 mg PO DAILY 11/29/16 Metoprolol Tartrate [Lopressor] 100 mg PO BID 11/29/16 Digoxin [Lanoxin] 250 mcg PO DAILY 11/30/16 Levothyroxine Sodium [Synthroid] 25 mcg PO QDAC 11/30/16 Rosuvastatin Calcium [Crestor] 10 mg PO DAILY PM 07/21/17 metFORMIN [Glucophage] 500 mg PO BIDWM 07/21/17 Objective - Vital Signs/Intake & Output Reviewed Vital Signs: Yes Vital Signs: Vital Signs x48h Temp Pulse Resp BP Pulse Ox 07/22/17 08:21 36.6 C 45 L 18 123/59 L 100 07/22/17 05:30 36.7 C 45 L 20 115/54 L 99 Intake & Output: Intake & Output 07/19/17 07/20/17 07/21/17 07/22/17 23:59 23:59 23:59 23:59 Intake Total 700 1015 Output Total 250 Balance 450 1015 - Objective General Appearance: positive: No acute distress, Alert. negative: Lethargic Eyes Bilateral: positive: Normal inspection, PERRL, No lid inflammation, Conjunctivae nml ENT: positive: ENT inspection nml, Pharynx nml, No signs of dehydration. negative: Purulent nasal drainage, Pharyngeal erythema, Oral lesions Neck: positive: Nml inspection, Thyroid nml, No JVD, Trachea midline. negative : Thyromegaly, Lymphadenopathy (R), Lymphadenopathy (L), Stiff neck, Carotid bruit, Swelling/bruising, Tracheal deviation Respiratory: positive: Chest non-tender, No respiratory distress, Rhonchi. negative: Wheezes, Rales Cardiovascular: positive: Regular rate & rhythm, No murmur, No gallop, Bradycardia. negative: Irregularly irregular, Extrasystoles, Tachycardia, Systolic murmur, Diastolic murmur Peripheral Pulses: 2+ Radial (R), 2+ Radial (L), 2+ Dorsalis pedis (R), 2+ Dorsalis pedis (L) Abdomen: positive: Non-tender, No organomegaly, Nml bowel sounds, No distention. negative: Tenderness, Guarding, Rebound Back: positive: Nml inspection. negative: CVA tenderness (R), CVA tenderness (L ) Skin: positive: Color nml, No rash, Warm, Dry. negative: Cyanosis, Diaphoresis , Pallor Extremities: positive: Non-tender, Full ROM, Nml appearance. negative: Calf tenderness, Joint swelling, Nabeel's sign/cords Neurologic/Psychiatric: positive: Sensation nml, Mood/affect nml. negative: Sensory loss, Facial droop, Slurred/abnml speech, Depressed mood/affect - Lab Results Fish Bones: 07/22/17 06:15 07/22/17 06:15 Other Labs: Lab Results x24hrs 07/22/17 07/22/17 07/22/17 Range/Units 07:29 06:15 06:15 WBC (4.8-10.8) x10^3/uL RBC (4.20-5.40) 10^6/uL Hgb (12.0-16.0) g/dL Hct (37.0-47.0) % MCV (81.0-99.0) fL MCH (27.0-31.0) pg MCHC (32.0-36.0) g/dL RDW (12.0-15.0) % Plt Count (130-450) 10^3/uL MPV (7.9-10.8) fL Neut # (1.5-6.6) 10^3/uL Lymph # (1.5-3.5) 10^3/uL [place] # (0.0-1.0) 10^3/uL Eos # (0.0-0.7) 10^3/uL Baso # (0.0-0.1) 10^3/uL Absolute Nucleated RBC x10^3/uL Nucleated RBC % /100WBC Sodium (135-145) mmol/L Potassium (3.5-5.0) mmol/L Chloride (101-111) mmol/L Carbon Dioxide (21-32) mmol/L Anion Gap (6-13) BUN (6-20) mg/dL Creatinine (0.4-1.0) mg/dL Estimated GFR (MDRD) (>89) Glucose (70-100) mg/dL POC Whole Bld Glucose 87 (70 - 100) mg/dL Calcium (8.5-10.3) mg/dL Magnesium (1.7-2.8) mg/dL Total Bilirubin (0.2-1.0) mg/dL AST (10-42) IU/L ALT (10-60) IU/L Alkaline Phosphatase (42-121) IU/L Total Protein (6.7-8.2) g/dL Albumin (3.2-5.5) g/dL Globulin (2.1-4.2) g/dL Albumin/Globulin Ratio (1.0-2.2) Vitamin B12 692 (180-914) pg/mL TSH (0.34-5.60) uIU/mL Last Dose Date NONE Last Dose Time NONE Digoxin 1.4 ng/mL 07/22/17 07/22/17 07/22/17 Range/Units 06:15 06:15 06:15 WBC 5.1 (4.8-10.8) x10^3/uL RBC 3.84 L (4.20-5.40) 10^6/uL Hgb 11.4 L (12.0-16.0) g/dL Hct 35.2 L (37.0-47.0) % MCV 91.7 (81.0-99.0) fL MCH 29.8 (27.0-31.0) pg MCHC 32.5 (32.0-36.0) g/dL RDW 16.3 H (12.0-15.0) % Plt Count 103 L (130-450) 10^3/uL MPV 7.8 L (7.9-10.8) fL Neut # 3.2 (1.5-6.6) 10^3/uL Lymph # 1.1 L (1.5-3.5) 10^3/uL [place] # 0.7 (0.0-1.0) 10^3/uL Eos # 0.0 (0.0-0.7) 10^3/uL Baso # 0.0 (0.0-0.1) 10^3/uL Absolute Nucleated RBC 0.01 x10^3/uL Nucleated RBC % 0.1 /100WBC Sodium 139 (135-145) mmol/L Potassium 3.4 L (3.5-5.0) mmol/L Chloride 103 (101-111) mmol/L Carbon Dioxide 25 (21-32) mmol/L Anion Gap 11.0 (6-13) BUN 23 H (6-20) mg/dL Creatinine 1.0 (0.4-1.0) mg/dL Estimated GFR (MDRD) 56 L (>89) Glucose 96 (70-100) mg/dL POC Whole Bld Glucose (70 - 100) mg/dL Calcium 8.2 L (8.5-10.3) mg/dL Magnesium 1.6 L (1.7-2.8) mg/dL Total Bilirubin 0.9 (0.2-1.0) mg/dL AST 28 (10-42) IU/L ALT 19 (10-60) IU/L Alkaline Phosphatase 65 (42-121) IU/L Total Protein 6.5 L (6.7-8.2) g/dL Albumin 3.4 (3.2-5.5) g/dL Globulin 3.1 (2.1-4.2) g/dL Albumin/Globulin Ratio 1.1 (1.0-2.2) Vitamin B12 (180-914) pg/mL TSH 3.58 (0.34-5.60) uIU/mL Last Dose Date Last Dose Time Digoxin ng/mL 07/21/17 Range/Units 20:37 WBC (4.8-10.8) x10^3/uL RBC (4.20-5.40) 10^6/uL Hgb (12.0-16.0) g/dL Hct (37.0-47.0) % MCV (81.0-99.0) fL MCH (27.0-31.0) pg MCHC (32.0-36.0) g/dL RDW (12.0-15.0) % Plt Count (130-450) 10^3/uL MPV (7.9-10.8) fL Neut # (1.5-6.6) 10^3/uL Lymph # (1.5-3.5) 10^3/uL [place] # (0.0-1.0) 10^3/uL Eos # (0.0-0.7) 10^3/uL Baso # (0.0-0.1) 10^3/uL Absolute Nucleated RBC x10^3/uL Nucleated RBC % /100WBC Sodium (135-145) mmol/L Potassium (3.5-5.0) mmol/L Chloride (101-111) mmol/L Carbon Dioxide (21-32) mmol/L Anion Gap (6-13) BUN (6-20) mg/dL Creatinine (0.4-1.0) mg/dL Estimated GFR (MDRD) (>89) Glucose (70-100) mg/dL POC Whole Bld Glucose 115 H (70 - 100) mg/dL Calcium (8.5-10.3) mg/dL Magnesium (1.7-2.8) mg/dL Total Bilirubin (0.2-1.0) mg/dL AST (10-42) IU/L ALT (10-60) IU/L Alkaline Phosphatase (42-121) IU/L Total Protein (6.7-8.2) g/dL Albumin (3.2-5.5) g/dL Globulin (2.1-4.2) g/dL Albumin/Globulin Ratio (1.0-2.2) Vitamin B12 (180-914) pg/mL TSH (0.34-5.60) uIU/mL Last Dose Date Last Dose Time Digoxin ng/mL Assessment/Plan - Problem List (1) Pneumonia Impression: - Problem List (1) Pneumonia Conclusion/Plan: pt had fever on last night but no fever today as far continue antibiotics, Tylenol PRN follow up blood culture pt had fever, Lung sound appears cracker special at right lower lobe, CXR reveals bilateral infiltrate Azithyomycin Rocephin follow up blood culture IVF (2) Influenza A Conclusion/Plan: pt feel much better continue Tamiflu pt's pt started to have symptoms on 3 days ago. Influenza test positive on Influenza A Tamiflu IVF (3) History of CVA (cerebrovascular accident) Conclusion/Plan: CT of brain without acute finding continue neuro check pt had hx of CVA, and with Afib, and brain aneurysm, pt lethargic today CT of brain resume home meds Aspirin Neuro check lab daily, vital monitor (4) DM2 (diabetes mellitus, type 2) Conclusion/Plan: stable, continue treatment resume home meds check A1C slide scale ACHS, Hypoglycemia protocol (5) HTN (hypertension) Conclusion/Plan: stable, resume home mes vital monitor (6) Hypokalemia Conclusion/Plan: K 3.4 replacement K is 3.1 today, replace potassium (7) Hypothyroidism Conclusion/Plan: TSh normal, continue home meds will resume home meds, check TSH (8) Altered mental state Conclusion/Plan: pt is alert and more oriented. pt is some lethargic, with hx of subacute CVA, afib, and brain aneurysm CT of head test of B12, TSH (9) Bradycardia pt has hx of Afib on Metoprolol, and Digoxia. Last night pt developed HR 38. Today morning HR was 46. It seems pt is asymptomatic Digoxia is on Therapeutic arrange. Discuss with pharmacy, keep Digoxia, and hold one dosage of Metoprolol, Cut to 50mg Metoprolol bid tonight tele monitor, vital monitor closely, adjust meds as needed
[2017-07-22] MEDS: ATORVASTATIN 10 MG TABLET PO SCH (20:20)
[2017-07-22] MEDS: DOXAZOSIN 4 MG TABLET PO SCH (20:21)
[2017-07-23] MEDS: SODIUM CHLORIDE FLUSH 0.9% 10 ML SYRINGE IVP SCH ×3 (02:28→20:16)
[2017-07-23 06:11] LABS: BASOPHILS # (AUTO) 0.1 10^3/uL (0.0-0.1); BASOPHILS % (AUTO) 1.4 %; EOSINOPHILS # (AUTO) 0.2 10^3/uL (0.0-0.7); EOSINOPHILS % (AUTO) 3.4 %; HGB - HEMOGLOBIN 11.4 g/dL (12.0-16.0); LYMPHOCYTES # (AUTO) 1.6 10^3/uL (1.5-3.5); LYMPHOCYTES % (AUTO) 31.6 %; MEAN CORPUSCULAR HEMOGLOBIN 29.3 pg (27.0-31.0); MEAN CORPUSCULAR HGB CONC 30.3 g/dL (32.0-36.0); MEAN CORPUSCULAR VOLUME 96.6 fL (81.0-99.0); MEAN PLATELET VOLUME 8.6 fL (7.9-10.8); MONOCYTES # (AUTO) 0.6 10^3/uL (0.0-1.0); MONOCYTES % (AUTO) 12.1 %; NEUTROPHILS # (AUTO) 2.6 10^3/uL (1.5-6.6); NEUTROPHILS % (AUTO) 51.5 %; PLT - PLATELET COUNT 110 10^3/uL (130-450); RED BLOOD COUNT 3.91 10^6/uL (4.20-5.40); RED CELL DISTRIBUTION WIDTH 16.9 % (12.0-15.0)
[2017-07-23 06:24] LABS: ALBUMIN 3.4 g/dL (3.2-5.5); BILIRUBIN,TOTAL 0.6 mg/dL (0.2-1.0); CALCIUM 7.7 mg/dL (8.5-10.3); CREATININE 0.8 mg/dL (0.4-1.0); MAGNESIUM 1.8 mg/dL (1.7-2.8); TOTAL PROTEIN 6.7 g/dL (6.7-8.2)
[2017-07-23] MEDS: SODIUM CHLORIDE 0.9% 1,000 ML IV SCH (07:55)
[2017-07-23] MEDS: MAGNESIUM OXIDE 400 MG TABLET PO SCH (08:47)
[2017-07-23] MEDS: ASPIRIN 325 MG TABLET PO SCH (08:48)
[2017-07-23] MEDS: LOSARTAN 50 MG TABLET PO SCH (08:48)
[2017-07-23] MEDS: OSELTAMIVIR 30 MG CAPSULE PO SCH ×2 (08:48→20:11)
[2017-07-23] MEDS: FAMOTIDINE 20 MG TABLET PO SCH (08:48)
[2017-07-23] MEDS: METOPROLOL TARTRATE 50 MG TABLET PO SCH ×2 (08:49→20:11)
[2017-07-23] MEDS: DIGOXIN 125 MCG TABLET PO SCH (08:49)
[2017-07-23] MEDS: guaiFENesin 600 MG TABLET PO SCH ×2 (08:49→20:11)
[2017-07-23] MEDS: ENOXAPARIN 40 MG/0.4 ML SYRINGE SUBQ SCH (08:50)
[2017-07-23] MEDS: cefTRIAXone 1 GM in SODIUM CHLORIDE 0.9% MINIBAG 100 ML IV SCH (08:51)
[2017-07-23] MEDS: POTASSIUM CHLORIDE 10 MEQ CAPSULE PO SCH (08:52)
[2017-07-23] MEDS: INSULIN ASPART 300 UNIT/3 ML PEN SUBQ SCH ×4 (08:52→23:23)
[2017-07-23] MEDS: POLYETHYLENE GLYCOL 3350 17 GM PACKET PO SCH (08:53)
[2017-07-23] MEDS: AZITHROMYCIN INJ 500 MG in SODIUM CHLORIDE 0.9% 250 ML IV SCH (10:18)
[2017-07-23] MEDS ORDERED: CALCIUM GLUCONATE 1,000 MG in SODIUM CHLORIDE 0.9% 50 ML IV ONE (12:00)
--- NOTE | 2017-07-23 15:00 | PROVIDER PROGRESS NOTE ---
Subjective - Prog Note Date Prog Note Date: 07/23/17 - Subjective Pt reports feeling: Improved Subjective: pt state she continue feeling better. No fever, chill, chest pain reported. Current Medications - Current Medications Current Medications: Active Medications Acetaminophen (Tylenol) 650 mg PO Q4HR PRN PRN Reason: Pain 1 to 4 Last Admin: 07/22/17 01:15 Dose: 650 mg Aspirin (Jermain) 325 mg PO QDBREAKFAST [facility] Last Admin: 07/23/17 08:48 Dose: 325 mg Atorvastatin Calcium (Lipitor) 20 mg PO QPM [facility] Last Admin: 07/22/17 20:20 Dose: 20 mg Digoxin (Lanoxin) 250 mcg PO DAILY [facility] Last Admin: 07/23/17 08:49 Dose: 250 mcg Doxazosin Mesylate (Cardura) 8 mg PO QPM [facility] Last Admin: 07/22/17 20:21 Dose: 8 mg Enoxaparin Sodium (Lovenox) 40 mg SUBQ DAILY [facility] Last Admin: 07/23/17 08:50 Dose: 40 mg Famotidine (Pepcid) 20 mg PO DAILY [facility] Last Admin: 07/23/17 08:48 Dose: 20 mg Guaifenesin (Mucinex) 600 mg PO BID [facility] Last Admin: 07/23/17 08:49 Dose: 600 mg Azithromycin 500 mg/ Sodium (Chloride) 250 mls @ 250 mls/hr IV DAILY@1000 [facility] Last Infusion: 07/23/17 11:20 Dose: Infused Ceftriaxone Sodium 1 gm/ (Sodium Chloride) 100 mls @ 200 mls/hr IV DAILY [facility] Last Infusion: 07/23/17 09:21 Dose: Infused Sodium Chloride (Normal Saline 0.9%) 1,000 mls @ 75 mls/hr IV .[id number] [facility] Last Admin: 07/23/17 07:55 Dose: 75 mls/hr Insulin Aspart (Novolog) 1 - 5 unit SUBQ 0800,1200,1700,2100 [facility] PRN Reason: Protocol Last Admin: 07/23/17 11:57 Dose: Not Given Losartan Potassium (Cozaar) 100 mg PO DAILY [facility] Last Admin: 07/23/17 08:48 Dose: 100 mg Magnesium Oxide (Mag Ox) 400 mg PO DAILYWM [facility] Last Admin: 07/23/17 08:47 Dose: 400 mg Metoprolol Tartrate (Lopressor) 50 mg PO BID [facility] Last Admin: 07/23/17 08:49 Dose: 50 mg Ondansetron HCl (Zofran Inj) 4 mg IVP Q6HR PRN PRN Reason: Nausea / Vomiting Oseltamivir Phosphate (Tamiflu) 30 mg PO BID [facility] Stop: 07/25/17 21:01 Last Admin: 07/23/17 08:48 Dose: 30 mg Polyethylene Glycol (Miralax) 17 gm PO DAILY [facility] Last Admin: 07/23/17 08:53 Dose: Not Given Potassium Chloride (Micro-K) 10 meq PO DAILYWM [facility] Last Admin: 07/23/17 08:52 Dose: 10 meq Sodium Chloride (Normal Saline Flush 0.9%) 10 ml IVP PRN PRN PRN Reason: NEEDED PER PROVIDER ORDERS Sodium Chloride (Normal Saline Flush 0.9%) 10 ml IVP Q8HR [facility] Last Admin: 07/23/17 12:01 Dose: Not Given Potassium Chloride 10 meq PO DAILYWM 01/11/13 Doxazosin Mesylate 8 mg PO QPM 11/29/16 Losartan Potassium [Cozaar] 100 mg PO DAILY 11/29/16 Metoprolol Tartrate [Lopressor] 100 mg PO BID 11/29/16 Digoxin [Lanoxin] 250 mcg PO DAILY 11/30/16 Levothyroxine Sodium [Synthroid] 25 mcg PO QDAC 11/30/16 Rosuvastatin Calcium [Crestor] 10 mg PO DAILY PM 07/21/17 metFORMIN [Glucophage] 500 mg PO BIDWM 07/21/17 Objective - Vital Signs/Intake & Output Reviewed Vital Signs: Yes Vital Signs: Vital Signs x48h Temp Pulse Resp BP BP Pulse Ox 07/23/17 11:10 36.8 C 48 L 18 147/85 H 100 07/23/17 10:00 16 99 07/23/17 08:49 73 156/86 H 156/86 H 07/23/17 07:30 36.7 C 73 18 189/85 H 100 Intake & Output: Intake & Output 07/20/17 07/21/17 07/22/17 07/23/17 23:59 23:59 23:59 23:59 Intake Total 700 2665 1810 Output Total 250 1 Balance 450 2665 1809 - Objective General Appearance: positive: No acute distress, Alert. negative: Lethargic Eyes Bilateral: positive: Normal inspection, PERRL, No lid inflammation, Conjunctivae nml ENT: positive: ENT inspection nml, Pharynx nml, Purulent nasal drainage, Pharyngeal erythema, Oral lesions Neck: positive: Nml inspection, Thyroid nml, No JVD, Trachea midline. negative : Thyromegaly, Lymphadenopathy (R), Lymphadenopathy (L), Stiff neck, Swelling/ bruising, Tracheal deviation Respiratory: positive: Chest non-tender, No respiratory distress, Breath sounds nml. negative: Wheezes, Rales, Rhonchi Cardiovascular: positive: Regular rate & rhythm, No murmur, No gallop. negative : Irregularly irregular, Extrasystoles, Tachycardia, Bradycardia, Systolic murmur, Diastolic murmur Peripheral Pulses: 2+ Radial (R), 2+ Radial (L), 2+ Dorsalis pedis (R), 2+ Dorsalis pedis (L) Abdomen: positive: Non-tender, No organomegaly, Nml bowel sounds, No distention. negative: Tenderness, Guarding, Rebound Back: positive: Nml inspection. negative: CVA tenderness (R), CVA tenderness (L ) Skin: positive: Color nml, No rash, Warm, Dry. negative: Cyanosis, Diaphoresis , Pallor Extremities: positive: Non-tender, Full ROM, Nml appearance. negative: Calf tenderness, Joint swelling, Nabeel's sign/cords Neurologic/Psychiatric: positive: Sensation nml, Mood/affect nml. negative: Sensory loss, Facial droop, Slurred/abnml speech, Depressed mood/affect - Lab Results Fish Bones: 07/23/17 05:59 07/23/17 05:59 Other Labs: Lab Results x24hrs 07/23/17 07/23/17 07/23/17 Range/Units 11:30 07:25 05:59 WBC (4.8-10.8) x10^3/uL RBC (4.20-5.40) 10^6/uL Hgb (12.0-16.0) g/dL Hct (37.0-47.0) % MCV (81.0-99.0) fL MCH (27.0-31.0) pg MCHC (32.0-36.0) g/dL RDW (12.0-15.0) % Plt Count (130-450) 10^3/uL MPV (7.9-10.8) fL Neut # (1.5-6.6) 10^3/uL Lymph # (1.5-3.5) 10^3/uL [place] # (0.0-1.0) 10^3/uL Eos # (0.0-0.7) 10^3/uL Baso # (0.0-0.1) 10^3/uL Absolute Nucleated RBC x10^3/uL Nucleated RBC % /100WBC Sodium (135-145) mmol/L Potassium (3.5-5.0) mmol/L Chloride (101-111) mmol/L Carbon Dioxide (21-32) mmol/L Anion Gap (6-13) BUN (6-20) mg/dL Creatinine (0.4-1.0) mg/dL Estimated GFR (MDRD) (>89) Glucose (70-100) mg/dL POC Whole Bld Glucose 98 85 (70 - 100) mg/dL Calcium (8.5-10.3) mg/dL Magnesium (1.7-2.8) mg/dL Total Bilirubin (0.2-1.0) mg/dL AST (10-42) IU/L ALT (10-60) IU/L Alkaline Phosphatase (42-121) IU/L Ammonia 16.1 (7-35) umol/L Total Protein (6.7-8.2) g/dL Albumin (3.2-5.5) g/dL Globulin (2.1-4.2) g/dL Albumin/Globulin Ratio (1.0-2.2) 07/23/17 07/23/17 07/22/17 Range/Units 05:59 05:59 20:33 WBC 5.0 (4.8-10.8) x10^3/uL RBC 3.91 L (4.20-5.40) 10^6/uL Hgb 11.4 L (12.0-16.0) g/dL Hct 37.8 (37.0-47.0) % MCV 96.6 (81.0-99.0) fL MCH 29.3 (27.0-31.0) pg MCHC 30.3 L (32.0-36.0) g/dL RDW 16.9 H (12.0-15.0) % Plt Count 110 L (130-450) 10^3/uL MPV 8.6 (7.9-10.8) fL Neut # 2.6 (1.5-6.6) 10^3/uL Lymph # 1.6 (1.5-3.5) 10^3/uL [place]irt # 0.6 (0.0-1.0) 10^3/uL Eos # 0.2 (0.0-0.7) 10^3/uL Baso # 0.1 (0.0-0.1) 10^3/uL Absolute Nucleated RBC 0.00 x10^3/uL Nucleated RBC % 0.0 /100WBC Sodium 141 (135-145) mmol/L Potassium 3.7 (3.5-5.0) mmol/L Chloride 109 (101-111) mmol/L Carbon Dioxide 24 (21-32) mmol/L Anion Gap 8.0 (6-13) BUN 17 (6-20) mg/dL Creatinine 0.8 (0.4-1.0) mg/dL Estimated GFR (MDRD) 72 L (>89) Glucose 83 (70-100) mg/dL POC Whole Bld Glucose 98 (70 - 100) mg/dL Calcium 7.7 L (8.5-10.3) mg/dL Magnesium 1.8 (1.7-2.8) mg/dL Total Bilirubin 0.6 (0.2-1.0) mg/dL AST 30 (10-42) IU/L ALT 19 (10-60) IU/L Alkaline Phosphatase 72 (42-121) IU/L Ammonia (7-35) umol/L Total Protein 6.7 (6.7-8.2) g/dL Albumin 3.4 (3.2-5.5) g/dL Globulin 3.3 (2.1-4.2) g/dL Albumin/Globulin Ratio 1.0 (1.0-2.2) 07/22/17 Range/Units 16:48 WBC (4.8-10.8) x10^3/uL RBC (4.20-5.40) 10^6/uL Hgb (12.0-16.0) g/dL Hct (37.0-47.0) % MCV (81.0-99.0) fL MCH (27.0-31.0) pg MCHC (32.0-36.0) g/dL RDW (12.0-15.0) % Plt Count (130-450) 10^3/uL MPV (7.9-10.8) fL Neut # (1.5-6.6) 10^3/uL Lymph # (1.5-3.5) 10^3/uL [place]irt # (0.0-1.0) 10^3/uL Eos # (0.0-0.7) 10^3/uL Baso # (0.0-0.1) 10^3/uL Absolute Nucleated RBC x10^3/uL Nucleated RBC % /100WBC Sodium (135-145) mmol/L Potassium (3.5-5.0) mmol/L Chloride (101-111) mmol/L Carbon Dioxide (21-32) mmol/L Anion Gap (6-13) BUN (6-20) mg/dL Creatinine (0.4-1.0) mg/dL Estimated GFR (MDRD) (>89) Glucose (70-100) mg/dL POC Whole Bld Glucose 79 (70 - 100) mg/dL Calcium (8.5-10.3) mg/dL Magnesium (1.7-2.8) mg/dL Total Bilirubin (0.2-1.0) mg/dL AST (10-42) IU/L ALT (10-60) IU/L Alkaline Phosphatase (42-121) IU/L Ammonia (7-35) umol/L Total Protein (6.7-8.2) g/dL Albumin (3.2-5.5) g/dL Globulin (2.1-4.2) g/dL Albumin/Globulin Ratio (1.0-2.2) Assessment/Plan - Problem List (1) Pneumonia Impression: (1) Pneumonia Conclusion/Plan: no fever, chill. pt report she feel much better continue antibiotics blood culture preliminary is negative pt had fever on last night but no fever today as far continue antibiotics, Tylenol PRN follow up blood culture pt had fever, Lung sound appears cracker special at right lower lobe, CXR reveals bilateral infiltrate Azithyomycin Rocephin follow up blood culture IVF (2) Influenza A Conclusion/Plan: pt feel much better continue Tamiflu pt's pt started to have symptoms on 3 days ago. Influenza test positive on Influenza A Tamiflu IVF (3) History of CVA (cerebrovascular accident) Conclusion/Plan: CT of brain without acute finding continue neuro check pt had hx of CVA, and with Afib, and brain aneurysm, pt lethargic today CT of brain resume home meds Aspirin Neuro check lab daily, vital monitor (4) DM2 (diabetes mellitus, type 2) Conclusion/Plan: stable, continue treatment resume home meds check A1C slide scale ACHS, Hypoglycemia protocol (5) HTN (hypertension) Conclusion/Plan: stable, resume home mes vital monitor (6) Hypokalemia Conclusion/Plan: resolved K 3.4 replacement K is 3.1 today, replace potassium (7) Hypothyroidism Conclusion/Plan: TSh normal, continue home meds will resume home meds, check TSH (8) Altered mental state Conclusion/Plan: pt is alert and more oriented. pt is some lethargic, with hx of subacute CVA, afib, and brain aneurysm CT of head test of B12, TSH (9) Bradycardia good control at around 70 pt has hx of Afib on Metoprolol, and Digoxia. Last night pt developed HR 38. Today morning HR was 46. It seems pt is asymptomatic Digoxia is on Therapeutic arrange. Discuss with pharmacy, keep Digoxia, and hold one dosage of Metoprolol, Cut to 50mg Metoprolol bid tonight tele monitor, vital monitor closely, adjust meds as needed
[2017-07-23] MEDS ORDERED: hydrALAZINE INJ 20 MG/ML VIAL IVP PRN (16:27)
[2017-07-23] MEDS: cloNIDine 0.1 MG TABLET PO PRN (16:50)
[2017-07-23] MEDS: ATORVASTATIN 10 MG TABLET PO SCH (20:11)
[2017-07-23] MEDS: DOXAZOSIN 4 MG TABLET PO SCH (20:11)
[2017-07-24] MEDS: SODIUM CHLORIDE 0.9% 1,000 ML IV SCH (01:03)
[2017-07-24] MEDS: SODIUM CHLORIDE FLUSH 0.9% 10 ML SYRINGE IVP SCH (02:13)
[2017-07-24 05:39] LABS: BASOPHILS % (AUTO) 0.5 %; EOSINOPHILS # (AUTO) 0.1 10^3/uL (0.0-0.7); EOSINOPHILS % (AUTO) 1.3 %; HGB - HEMOGLOBIN 12.2 g/dL (12.0-16.0); LYMPHOCYTES % (AUTO) 18.7 %; MEAN CORPUSCULAR HEMOGLOBIN 29.1 pg (27.0-31.0); MEAN CORPUSCULAR HGB CONC 31.9 g/dL (32.0-36.0); MEAN CORPUSCULAR VOLUME 91.3 fL (81.0-99.0); MEAN PLATELET VOLUME 8.1 fL (7.9-10.8); MONOCYTES # (AUTO) 0.5 10^3/uL (0.0-1.0); NEUTROPHILS # (AUTO) 3.9 10^3/uL (1.5-6.6); NEUTROPHILS % (AUTO) 70.5 %; PLT - PLATELET COUNT 107 10^3/uL (130-450); RED CELL DISTRIBUTION WIDTH 15.9 % (12.0-15.0); WHITE BLOOD COUNT 5.5 x10^3/uL (4.8-10.8)
[2017-07-24 05:51] LABS: ALBUMIN 3.7 g/dL (3.2-5.5); ALBUMIN/GLOBULIN RATIO 1.1 (1.0-2.2); CALCIUM 7.8 mg/dL (8.5-10.3); CREATININE 0.6 mg/dL (0.4-1.0); TOTAL PROTEIN 7.2 g/dL (6.7-8.2)
[2017-07-24] MEDS: cloNIDine 0.1 MG TABLET PO PRN (07:58)
[2017-07-24] MEDS ORDERED: POTASSIUM CHLORIDE 20 MEQ TABLET PO SCH (08:37)
[2017-07-24] MEDS: ASPIRIN 325 MG TABLET PO SCH (08:40)
--- NOTE | 2017-07-24 08:45 | DISCHARGE SUMMARY ---
Discharge Summary Admit Date: 07/21/17 Discharge Date: 07/24/17 Discharging Provider: MEHDI Bhandari Primary Care Provider: Enoch Pulido Code Status: Attempt Resuscitation Condition at Discharge: Good Discharge Disposition: 01 Home, Self Care - DIAGNOSES Admission Diagnoses: Influenza A (J10.1) Pneumonia (J18.9) Atrial fibrillation with RVR (I48.91) Fever (R50.9) Hypokalemia (E87.6) Discharge Diagnoses with Status of Each Condition: Influenza A (J10.1) acute, being treated with Tamiflu, stable. Pneumonia (J18.9) improved, medical treatment to continue out patient. Atrial fibrillation with RVR (I48.91) chronic, medication adjustments, stable. Fever (R50.9) resolved. Hypokalemia (E87.6) resolved, given supplement. - HPI History of Present Illness: Andria De La Paz is a 66-year-old female with a past medical history of brain aneurysm, subsequential bilateral vision some loss, dipolpia, Afib, subacute CVA , HTN, hypothyroidism, urinary incontinence, DM2, who present ER for cough for three days, lethargic and weakness. Patient was not able to respond to questions. Her at the bedside, and reports the patient started to have a dry cough on Saturday, but denies noted fever or chills. At home, she became lethargic, could not stand, and became incontinent of urine. Patient denies chest pain, shortness of breath, headache, abdominal pain, nausea, vomiting, or diarrhea. Patient is febrile at 38.9. Influenza test shows positive A, and A/B Ag positive, hypokalemia with a potassium of 3.1. A CXR reveals mild pulmonary edema with bibasilar infiltrate versus atelectasis. She will be admitted to inpatient for further treatment. - HOSPITAL COURSE Hospital Course: The following problems/diagnoses were prevalent during this hospital stay: Pneumonia: Patient denied fever or chills on admission. She was placeded on IV antibiotics; Azithyomycin & Rocephin, IVFs, and Tylenol PRN. Preliminary blood cultures have been no growth to date. A CXR revealed bilateral infiltrates. Infulenza A: Patient was started on Tamiflu, IVFs and IV antibiotics. Patient was noted to have symptoms about 3 days prior to admission. Influenza test was positive for Influenza A, so Tamiflu was continued upon discharge. History of CVA: A CT brain was obtained upon admission and was without acute findings. Neuro checks were initiated for the first 24 hours of her stay. Risk factors for reaccuring events include; history of CVA, atrial fibrillation , and a history of a brain aneurysm. Patient was found to be lethargic early in her stay, that was likely due to her acute illness. She remained on her home medications including ASA. Her labs were monitored throughout her stay. DM2: This has been stable. A hemoglobin A1C was 6.5% on 07/21/17. Patient was placed on Lantus scheduled at and [facility] with bedside POC blood sugar checks ACHS with hypoglycemia protocol. Her home routine was then resumed upon discharge. Hypertension: Blood pressures have remained stable. Patient was continued on home medications. Vital signs were monitored throughout her stay. Hypokalemia: Potassium at admission was low at 3.1. Supplemental K+ was prescribed. On the day of discharge blood potassium remained stable at 3.2, and patient's home dose was resumed. Hypothyroidism: TSH was 3.58 on 07/22/17. No changes were made to patient's current dose of synthroid. Plan to monitor every month to 6 weeks. Altered mental state: Patient became alert and more oriented during daily exams , but was previously noted to be lethargic. AMS is likely with prominent neuro history including; a history of subacute CVA, atrial fibrillation, and a history of a brain aneurysm. A CT head revealed no acute abnormalities and no bleeds. Laboratory tests included; B12 which was normal at 692, and a TSH, which was also normal at 3.58. Bradycardia: Patient's heart rate in the beginning of her stay was as low as 38 bpm and she was asymptomatic. Patient was otherwise generally around 70 bpm. Patient as a past medical history of atrial fibrillation and is on Metoprolol, and Digoxin. Her vital signs were monitored throughout her stay. Disposition: Patient was anxious to go back home and was discharged in stable condition via /private car. Prescriptions were sent to pharmacy of choice. - ALLERGIES Allergies/Adverse Reactions: Allergies Allergy/AdvReac Type Severity Reaction Status Date / Time lisinopril Allergy Severe Respiratory Verified 11/28/16 19:09 amlodipine besylate * AdvReac Intermediate Edema Verified 11/28/16 19:09 [From [facility]] - MEDICATIONS Home Medications: Ambulatory Orders Medication Instructions Recorded Confirmed Potassium Chloride 10 meq PO DAILYWM 01/11/13 07/21/17 Doxazosin Mesylate 8 mg PO QPM 11/29/16 07/21/17 Losartan Potassium [Cozaar] 100 mg PO DAILY 11/29/16 07/21/17 Aspirin 325 mg PO QDBREAKFAST #30 tablet 11/30/16 07/21/17 Levothyroxine Sodium [Synthroid] 25 mcg PO QDAC 11/30/16 07/22/17 Rosuvastatin Calcium [Crestor] 10 mg PO DAILY PM 07/21/17 07/22/17 metFORMIN [Glucophage] 500 mg PO BIDWM 07/21/17 07/21/17 Benzonatate [Tessalon Perle] 100 mg PO Q4H PRN #40 capsule 07/24/17 Metoprolol Succinate [Toprol Xl] 50 mg PO BID #60 tablet 07/24/17 Oseltamivir [Tamiflu] 75 mg PO DAILY 4 Days #4 capsule 07/24/17 hydrALAZINE [Apresoline] 10 mg PO BID #60 tablet 07/24/17 - PHYSICAL EXAM AT DISCHARGE General Appearance: positive: No acute distress, Alert Eyes Bilateral: positive: Normal inspection, PERRL ENT: positive: ENT inspection nml, Pharynx nml, No signs of dehydration Neck: positive: Nml inspection, Thyroid nml, No JVD, Trachea midline Respiratory: positive: Chest non-tender, No respiratory distress, Other (mild crackles.) Cardiovascular: positive: No gallop, Irregularly irregular, Systolic murmur, Decreased pulse(s) Peripheral Pulses: positive: 1+ Abdomen: positive: Non-tender, No organomegaly, Nml bowel sounds, No distention Back: positive: Nml inspection Skin: positive: No rash, Warm, Dry, Pallor Extremities: positive: Non-tender, Full ROM, Pedal edema (mild) Neurologic/Psychiatric: positive: Oriented x3, CN's nml (2-12), Motor nml, Sensation nml, Weakness, Depressed mood/affect Reflexes: Bicep (R): 3+, Bicep (L): 3+ - LABS Result Diagrams: 07/24/17 05:20 01/31/18 05:20 - DIAGNOSTIC IMAGING Diagnostic Imaging Results: Final report reviewed Diagnostic Imaging Results Comments: FINDINGS: Lungs/Pleura: There is hypoventilation. Mild pulmonary edema pattern present, with suggestion of bibasilar infiltrate versus atelectasis. Mediastinum: Within exam limitations, the cardiomediastinal contour is normal. Other: None. IMPRESSION: Developing mild pulmonary edema pattern with bibasilar infiltrate versus atelectasis. Head CT: FINDINGS: Parenchyma: No intraparenchymal hemorrhage. Patient status post remote right occipital infarct. Again patient status post prior aneurysm coiling with coil mass in left suprasellar region. Right basal ganglia calcifications. There are areas of low-density involving white matter of the cerebral hemispheres. No new areas of loss zarate-white differentiation. Extraaxial Spaces: Normal for age. No subdural or epidural collections identified. Ventricles: Normal in size and position. Sinuses and Orbits: Imaged paranasal sinuses, orbits, and mastoids show no significant abnormality. Bones: No evidence of fracture or calvarial defect. Other: None. IMPRESSION: 1. No evidence of hemorrhage, mass, or other acute abnormality. 2. 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 3. Mild microvascular change. - FOLLOW UP Follow Up: Disposition: 01 Home, Self Care Condition: Good Prescriptions: Benzonatate [Tessalon Perle] 100 mg PO Q4H PRN #40 capsule PRN Reason: Cough hydrALAZINE [Apresoline] 10 mg PO BID #60 tablet Metoprolol Succinate [Toprol Xl] 50 mg PO BID #60 tablet Oseltamivir [Tamiflu] 75 mg PO DAILY 4 Days #4 capsule Diet: Cardiac Activity Restrictions: No Restrictions Shower Restrictions: No Driving Restrictions: No Weight Bearing: Full Weight Additional Instructions or Follow Up instructions: You were treated for +influenza A and given Tamiflu. This should continue for an additional 4 days. Your blood pressure has been elevated, so I recommend starting a new medication called Hydralazine and STOPPING your digoxin. This will promote good heart function. In addition, we would like you to change the Metoprolol to a longer acting type. On your echocardiogram, it shows increased right heart pressures, likely from your acute illness AND a thickened left ventricle, likely from years of uncontrolled blood pressure. Please take all medications as prescribed. Rest if you are tired and drink plenty of fluids. I have given you something for cough. - TIME SPENT Time Spent in Discharge (Minutes): 60
[2017-07-24] MEDS: cefTRIAXone 1 GM in SODIUM CHLORIDE 0.9% MINIBAG 100 ML IV SCH (08:51)
[2017-07-24] MEDS: DIGOXIN 125 MCG TABLET PO SCH (08:53)
[2017-07-24] MEDS: LOSARTAN 50 MG TABLET PO SCH (08:53)
[2017-07-24] MEDS: MAGNESIUM OXIDE 400 MG TABLET PO SCH (08:54)
[2017-07-24] MEDS: OSELTAMIVIR 30 MG CAPSULE PO SCH (08:54)
[2017-07-24] MEDS: guaiFENesin 600 MG TABLET PO SCH (08:55)
[2017-07-24] MEDS: METOPROLOL TARTRATE 50 MG TABLET PO SCH (08:55)
[2017-07-24] MEDS: ENOXAPARIN 40 MG/0.4 ML SYRINGE SUBQ SCH (08:55)
[2017-07-24] MEDS: FAMOTIDINE 20 MG TABLET PO SCH (08:55)
[2017-07-24] MEDS: POLYETHYLENE GLYCOL 3350 17 GM PACKET PO SCH (09:02)
[2017-07-24] MEDS: INSULIN ASPART 300 UNIT/3 ML PEN SUBQ SCH (09:32)
[2017-07-24] MEDS: AZITHROMYCIN INJ 500 MG in SODIUM CHLORIDE 0.9% 250 ML IV SCH (10:09)
--- NOTE | 2017-07-24 10:59 | Discharge Plan ---
Discharge Plan Disposition: Home, Self Care Condition: Good Prescriptions: Benzonatate [Tessalon Perle] 100 mg PO Q4H PRN #40 capsule PRN Reason: Cough hydrALAZINE [Apresoline] 10 mg PO BID #60 tablet Metoprolol Succinate [Toprol Xl] 50 mg PO BID #60 tablet Oseltamivir [Tamiflu] 75 mg PO DAILY 4 Days #4 capsule Diet: Cardiac Activity Restrictions: No Restrictions Shower Restrictions: No Driving Restrictions: No Weight Bearing: Full Weight Additional Instructions or Follow Up instructions: You were treated for +influenza A and given Tamiflu. This should continue for an additional 4 days. Your blood pressure has been elevated, so I recommend starting a new medication called Hydralazine and STOPPING your digoxin. This will promote good heart function. In addition, we would like you to change the Metoprolol to a longer acting type. On your echocardiogram, it shows increased right heart pressures, likely from your acute illness AND a thickened left ventricle, likely from years of uncontrolled blood pressure. Please take all medications as prescribed. Rest if you are tired and drink plenty of fluids. I have given you something for cough. No Smoking: If you smoke, Please STOP! Call for help. Follow-up with: WILL MURILLO [Primary Care Provider] -
[2017-07-24 11:37] VITALS: BP 125/69
== END 2017-07-24 12:15 | disposition home or self-care (01) | DRG 195 ==
LOC: ED 10:11 → MS2 14:24
PROVIDERS: ADMIT Nurse Practitioner Gerontology; ATTEND Nurse Practitioner
DX: J10.00 Influenza due to other identified influenza virus with unspecified type of pneumonia (principal); I48.2 Chronic atrial fibrillation; I11.9 Hypertensive heart disease without heart failure; E87.6 Hypokalemia; E03.9 Hypothyroidism, unspecified; E11.9 Type 2 diabetes mellitus without complications; Z79.82 Long term (current) use of aspirin; Z86.73 Personal history of transient ischemic attack (TIA), and cerebral infarction without residual deficits; Z86.79 Personal history of other diseases of the circulatory system; Z79.84 Long term (current) use of oral hypoglycemic drugs
CPT/HCPCS: 36415; 51702; 70450; 71045; 80053; 80162; 81001; 81003; 82140; 82607; 83036; 83605; 83690; 83735; 84443; 84484; 85025; 85610; 87040; 87086; 87275; 87276; 93005; 93306; 96360; 96361; 99284

== ENCOUNTER 2022-10-23 22:20 | Emergency (ER) | payer MEDICARE, OTHER ==
[2022-10-23] MEDS ORDERED: METOPROLOL TARTRATE 50 MG TABLET PO STA (23:06)
[2022-10-24 01:00] VITALS: BP 192/113
--- NOTE | 2022-10-24 01:32 | ED Physician Documentation ---
History of Present Illness - Stated complaint Stated Complaint: BP HIGH, NECK PX - Chief complaint Chief Complaint: Cardiac - History obtained from History obtained from: Patient - Additonal information Additional information: The patient is brought to the emergency department by her spouse for chief complaint of high blood pressure. She states that she took her blood pressure today and noticed that it was in the 200s over 100s. She states that normally, her blood pressure is 140s to 150s over less than 100. She took her medications as usual this morning but has not Had any change in her blood pressure. She denies any chest pain, shortness of breath, or neurologic issues. She had some soreness in her right neck earlier but this is resolved. No other complaints at this time. 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 : None HEENT: None Psych: None Musculoskeletal: None Derm: None - Past Surgical History Past Surgical History: Yes - Present Medications Home Medications: Ambulatory Orders Medication Instructions Recorded Confirmed Potassium Chloride 10 meq PO DAILYWM 01/11/13 10/23/22 Doxazosin Mesylate 8 mg PO QPM 11/29/16 10/23/22 Losartan Potassium [Cozaar] 100 mg PO DAILY 11/29/16 10/23/22 Aspirin 325 mg PO QDBREAKFAST #30 tablet 11/30/16 10/23/22 Levothyroxine Sodium [Synthroid] 25 mcg PO QDAC 11/30/16 10/23/22 metFORMIN [Glucophage] 500 mg PO BIDWM 07/21/17 10/23/22 hydrALAZINE [Apresoline] 10 mg PO BID #60 tablet 07/24/17 10/23/22 Metoprolol Succinate [Toprol Xl] 50 mg PO TID 10/23/22 10/23/22 Simvastatin [Zocor] 20 mg PO DAILY 10/23/22 10/23/22 - Allergies Allergies/Adverse Reactions: Allergies Allergy/AdvReac Type Severity Reaction Status Date / Time lisinopril Allergy Severe Respiratory Verified 10/23/22 22:39 amlodipine [From Norvas] Allergy Unknown Verified 10/23/22 23:29 phenytoin [From Dilantin] Allergy Unknown Verified 10/23/22 23:28 amlodipine besylate * AdvReac Intermediate Edema Verified 10/23/22 22:39 [From [facility]] - Social History Does the pt smoke?: No Smoking Status: Never smoker Does the pt drink ETOH?: No Does the pt have substance abuse?: No - Immunizations Immunizations are current?: Yes - POLST Patient has POLST: No POLST Status: Full Code PD ED PE NORMAL - Vitals Vital signs reviewed: Yes - General General: Alert and oriented X 3, No acute distress, Well developed/nourished - HEENT HEENT: Atraumatic, PERRL, EOMI, Moist mucous membranes - Neck Neck: Supple, no meningeal sign - Cardiac Cardiac: RRR, No murmur, Strong equal pulses - Respiratory Respiratory: No respiratory distress, Clear bilaterally - Abdomen Abdomen: Soft, Non tender, Non distended - Derm Derm: Normal color, Warm and dry, No rash - Extremities Extremities: No deformity, No edema - Neuro Neuro: Alert and oriented X 3 - Psych Psych: Normal mood, Normal affect Results - Vitals Vitals: Oxygen O2 Source Room air PD Medical Decision Making - ED course Complexity details: reviewed results, re-evaluated patient, considered differential, d/w patient ED course: The patient was very well appearing, she was given an extra dose of her metoprolol here which did bring her blood pressure down a bit, though she was still significantly elevated. She did not have hypertensive emergency and was essentially asymptomatic, and I discussed with her that this blood pressure elevation may just be transient. I have given her an extra dose of her hydralazine as well and have discussed with her that If her blood pressures continue to stay elevated consistently for the next week, she will need to talk to her primary doctor about potentially changing her regimen. We have also discussed symptoms of hypertensive emergency which should prompt the patient to return immediately. Departure - Departure Disposition: Home, Self Care Clinical Impression: Poorly-controlled hypertension Condition: Stable Instructions: ED Hypertension Conf Out Of Control Comments: You have been treated for your elevated blood pressure today. While your blood pressure is very high, you do not have any symptoms of hypertensive emergency, a condition in which 1 or more of your vital organs is in danger because of the height of your blood pressure. We have given you a couple extra doses of your medications, and these will continue to work overnight. You should take your normal doses tomorrow and see how your blood pressure does. If you find that your blood pressure is continuing to run high, you will need to make an appointment with your primary doctor to discuss whether your medications need to be adjusted. If you develop shortness of breath, chest pain, visual changes, severe headache, or symptoms of a stroke, you should return to the emergency department immediately. Discharge Date/Time: 10/24/22 01:49
[2022-10-24] MEDS ORDERED: hydrALAZINE 10 MG TABLET PO STA (01:38)
== END 2022-10-24 01:49 | disposition home or self-care (01) ==
LOC: ED 22:20
DX: I10 Essential (primary) hypertension (principal)
CPT/HCPCS: 99282; 99284; A9270

== ENCOUNTER 2023-01-26 09:01 | Outpatient (CLI) | payer MEDICARE, OTHER ==
--- NOTE | 2023-01-26 16:38 | Ultrasound Report ---
PROCEDURE: Abdomen Limited INDICATIONS: ELEVATED LIVER ENZYMES TECHNIQUE: Real-time focused scanning was performed of the abdomen, with image documentation. COMPARISONS: None. FINDINGS: Liver: Liver size is normal. The liver demonstrates increased echogenicity consistent with hepatic s teatosis. Gallbladder: The gallbladder has multiple stones. There is a polyp in the fundus measuring 7 mm. No e vidence of acute cholecystitis. Biliary ducts: Intrahepatic bile ducts are non-dilated. Extrahepatic bile duct caliber measures 4 m m. Normal is 6-7 mm or less in diameter, or 10 mm or less post-cholecystectomy. Pancreas: Visualized portions of the pancreas are sonographically normal. Right kidney: Normal in size and echotexture. Right kidney measures 9.5 cm long. No hydronephrosis o r nephrolithiasis. Subcentimeter simple renal cyst. No solid masses. No complex renal cystic lesions which require follow-up. Aorta: Visualized aorta is normal in caliber at less than 3 cm. IVC: Intrahepatic inferior vena cava is patent. Miscellaneous: No free abdominal fluid. IMPRESSION: 1. No acute ultrasound abnormality of the abdomen. 2. Hepatic steatosis. 3. Cholelithiasis without evidence of acute cholecystitis. 4. 7 mm gallbladder polyp. Recommend follow-up ultrasound in one year. Reviewed by: Austin Pena on 01/26/2023 4:37 PM PDT Approved by: Austin Pena on 01/26/2023 4:37 PM PDT Station ID: [id number]
== END 2023-01-26 09:02 | disposition home or self-care (01) ==
LOC: DI 09:01
PROVIDERS: ATTEND Internal Medicine
DX: R74.01 Elevation of levels of liver transaminase levels (principal); K76.0 Fatty (change of) liver, not elsewhere classified; K80.20 Calculus of gallbladder without cholecystitis without obstruction

== ENCOUNTER 2023-02-27 17:03 | Outpatient (CLI) | payer MEDICARE, OTHER | END 2023-02-27 17:04 | disposition critical access hospital (66) | LOC: EMS 17:03 | DX: R40.20 Unspecified coma (principal); R53.1 Weakness; R29.810 Facial weakness; R32 Unspecified urinary incontinence; I48.91 Unspecified atrial fibrillation | CPT/HCPCS: A0425; A0429 ==

== ENCOUNTER 2023-02-27 17:19 | Inpatient (IN) | payer MEDICARE, OTHER ==
[~2023-02-27 17:19] MED LIST: PROPOFOL 200 MG/20 ML VIAL IVP STA; ROCURONIUM 50 MG/5 ML VIAL IVP STA; SODIUM CHLORIDE 0.9% 1,000 ML IV STA
[2023-02-27] MEDS ORDERED: PROPOFOL 1000 MG/100 ML 1,000 MG/100 ML BOTTLE IV STA (17:20)
--- NOTE | 2023-02-27 17:41 | ED Physician Documentation ---
History of Present Illness - Stated complaint Stated Complaint: CODE STROKE - Chief complaint Chief Complaint: Critical Care - History obtained from History obtained from: EMS - Additonal information Additional information: This is a 72-year-old woman who presents by ambulance. She was brought in as a code stroke, the history I get from EMS is that she was last known normal at 9 AM this morning and was with sleeping in her chair today and then unarousable. On arrival she is completely obtunded with GCS of 3 and reportedly full code. She has a history of A-fib, not reportedly on a DOAC and diabetes. 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 : None HEENT: None Psych: None Musculoskeletal: None Derm: None - Past Surgical History Past Surgical History: Yes - Present Medications Home Medications: Ambulatory Orders Medication Instructions Recorded Confirmed Potassium Chloride 10 meq PO DAILYWM 01/11/13 02/27/23 Doxazosin Mesylate 8 mg PO QPM 11/29/16 02/27/23 Losartan Potassium [Cozaar] 100 mg PO DAILY 11/29/16 02/27/23 Aspirin 325 mg PO QDBREAKFAST #30 tablet 11/30/16 02/27/23 Levothyroxine Sodium [Synthroid] 50 mcg PO QDAC 11/30/16 02/27/23 metFORMIN [Glucophage] 500 mg PO BIDWM 07/21/17 02/27/23 hydrALAZINE [Apresoline] 10 mg PO BID #60 tablet 07/24/17 02/27/23 Metoprolol Succinate [Toprol Xl] 50 mg PO TID 10/23/22 02/27/23 Simvastatin [Zocor] 20 mg PO DAILY 10/23/22 02/27/23 - Allergies Allergies/Adverse Reactions: Allergies Allergy/AdvReac Type Severity Reaction Status Date / Time lisinopril Allergy Severe Respiratory Verified 02/27/23 17:29 amlodipine [From Norvasc] Allergy Unknown Verified 02/27/23 17:29 phenytoin [From Dilantin] Allergy Unknown Verified 02/27/23 17:29 amlodipine besylate * AdvReac Intermediate Edema Verified 02/27/23 17:29 [From Norvas] - Social History Does the pt smoke?: No Smoking Status: Never smoker Does the pt drink ETOH?: No Does the pt have substance abuse?: No - Immunizations Immunizations are current?: Yes - POLST Patient has POLST: No POLST Status: Full Code PD ED PE NORMAL - Vitals Vital signs reviewed: Yes - General General: Other (She is obtunded with no response to painful stimulus, sonorous respirations) - HEENT HEENT: Other (Bilateral dilated pupils, nonreactive) - Cardiac Cardiac: Other (Irregularly irregular) - Respiratory Respiratory: Other (Sonorous rhonchorous respirations) - Abdomen Abdomen: Non tender - Neuro Eye Opening: None Motor: None Verbal: None GCS Score: 3 Results - Vitals Vitals: Vital Signs - 24 hr 02/27/23 02/27/23 02/27/23 17:24 17:33 17:40 Temperature 36.3 C L Heart Rate 66 153 H 105 H Respiratory 14 18 16 Rate Blood Pressure 163/67 H 71/53 L 95/62 O2 Saturation 94 100 100 02/27/23 02/27/23 02/27/23 17:57 18:46 18:50 Temperature 35.7 C L Heart Rate 96 119 H 108 H Respiratory 16 20 Rate Blood Pressure 157/83 H 156/96 H O2 Saturation 96 98 02/27/23 02/27/23 02/27/23 19:00 19:14 19:33 Temperature 35.7 C L 35.7 C L 35.6 C L Heart Rate 121 H 109 H 102 H Respiratory 15 16 16 Rate Blood Pressure 136/74 H 138/74 H 126/76 O2 Saturation 100 100 100 02/27/23 02/27/23 19:57 21:23 Temperature 35.6 C L 36.1 C L Heart Rate 88 74 Respiratory 16 20 Rate Blood Pressure 91/62 112/79 O2 Saturation 100 95 Oxygen O2 Source Room air - EKG (time done) 1903 EKG releavant findings:: EKG personally interpreted by author of this note. Relevant findings are: Rate: Rate (enter#) (118) Rhythm: Atrial fibrillation [place]: Normal Intervals: Prolonged QT QRS: LVH Computer interpretation: Agree with computer - Labs Labs: Laboratory Tests 02/27/23 02/27/23 02/27/23 17:35 17:35 17:35 WBC 8.9 RBC 4.40 Hgb 14.0 Hct 42.2 MCV 95.9 MCH 31.8 H MCHC 33.2 RDW 13.1 Plt Count 150 MPV 9.7 Neut # (Auto) 7.7 H Lymph # (Auto) 0.7 L Mathews # (Auto) 0.5 Eos # (Auto) 0.0 Baso # (Auto) 0.0 Absolute Nucleated RBC 0.00 Nucleated RBC % 0.0 PT 11.8 INR 1.1 VBG pH VBG pCO2 VBG pO2 VBG HCO3 VBG Total CO2 VBG O2 Saturation VBG Base Excess Sodium 140 Potassium 3.7 Chloride 100 L Carbon Dioxide 26 Anion Gap 14.0 H BUN 23 H Creatinine 0.9 Estimated GFR (MDRD) 62 L Glucose 192 H Calcium 10.0 Phosphorus 5.7 H Magnesium 1.6 L Total Bilirubin 0.9 AST 36 ALT 30 Alkaline Phosphatase 57 Total Protein 7.7 Albumin 4.5 Globulin 3.2 Albumin/Globulin Ratio 1.4 Urine Color Urine Clarity Urine pH Ur Specific [place] Urine Protein Urine Glucose (UA) Urine Ketones Urine Occult Blood Urine Nitrite Urine Bilirubin Urine Urobilinogen Ur Leukocyte Esterase Urine RBC Urine WBC Ur Squamous Epith Cells Urine Bacteria Ur Microscopic Review Urine Culture Comments Nasal Adenovirus (PCR) Nasal B. parapertussis DNA (PCR) Nasal Coronavir 229E PCR Nasal Coronavir HKU1 PCR Nasal Coronavir NL63 PCR Nasal Coronavir OC43 PCR Nasal Enterovir/Rhinovir PCR Nasal Influenza B PCR Nasal Influenza A PCR Nasal Parainfluen 1 PCR Nasal Parainfluen 2 PCR Nasal Parainfluen 3 PCR Nasal Parainfluen 4 PCR Nasal RSV (PCR) Nasal B.pertussis DNA PCR Nasal C.pneumoniae (PCR) Trent Human Metapneumo PCR Nasal M.pneumoniae (PCR) Nasal SARS-CoV-2 (PCR) Urine Opiates Screen Ur Oxycodone Screen Urine Methadone Screen Ur Propoxyphene Screen Ur Barbiturates Screen Ur Tricyclics Screen Ur Phencyclidine Scrn Ur Amphetamine Screen U Methamphetamines Scrn U Benzodiazepines Scrn Urine Cocaine Screen U Cannabinoids Screen Ethyl Alcohol < 10.0 02/27/23 02/27/23 02/27/23 17:40 17:41 17:45 WBC RBC Hgb Hct MCV MCH MCHC RDW Plt Count MPV Neut # (Auto) Lymph # (Auto) Mathews # (Auto) Eos # (Auto) Baso # (Auto) Absolute Nucleated RBC Nucleated RBC % PT INR VBG pH 7.434 H VBG pCO2 30.9 L VBG pO2 103.7 H VBG HCO3 20.2 L VBG Total CO2 21.2 L VBG O2 Saturation 97.8 H VBG Base Excess -3.0 L Sodium Potassium Chloride Carbon Dioxide Anion Gap BUN Creatinine Estimated GFR (MDRD) Glucose Calcium Phosphorus Magnesium Total Bilirubin AST ALT Alkaline Phosphatase Total Protein Albumin Globulin Albumin/Globulin Ratio Urine Color YELLOW Urine Clarity HAZY Urine pH 7.0 Ur Specific [place] 1.020 Urine Protein >=300 H Urine Glucose (UA) 250 H Urine Ketones TRACE Urine Occult Blood LARGE H Urine Nitrite NEGATIVE Urine Bilirubin NEGATIVE Urine Urobilinogen 0.2 (NORMAL) Ur Leukocyte Esterase NEGATIVE Urine RBC TNTC H Urine WBC 0-3 Ur Squamous Epith Cells NONE SEEN Urine Bacteria Few Ur Microscopic Review INDICATED Urine Culture Comments NOT INDICATED Nasal Adenovirus (PCR) NOT DETECTED Nasal B. parapertussis DNA (PCR) NOT DETECTED Nasal Coronavir 229E PCR NOT DETECTED Nasal Coronavir HKU1 PCR NOT DETECTED Nasal Coronavir NL63 PCR NOT DETECTED Nasal Coronavir OC43 PCR NOT DETECTED Nasal Enterovir/Rhinovir PCR NOT DETECTED Nasal Influenza B PCR NOT DETECTED Nasal Influenza A PCR NOT DETECTED Nasal Parainfluen 1 PCR NOT DETECTED Nasal Parainfluen 2 PCR NOT DETECTED Nasal Parainfluen 3 PCR NOT DETECTED Nasal Parainfluen 4 PCR NOT DETECTED Nasal RSV (PCR) NOT DETECTED Nasal B.pertussis DNA PCR NOT DETECTED Nasal C.pneumoniae (PCR) NOT DETECTED Trent Human Metapneumo PCR NOT DETECTED Nasal M.pneumoniae (PCR) NOT DETECTED Nasal SARS-CoV-2 (PCR) NOT DETECTED Urine Opiates Screen NEGATIVE Ur Oxycodone Screen NEGATIVE Urine Methadone Screen NEGATIVE Ur Propoxyphene Screen NEGATIVE Ur Barbiturates Screen NEGATIVE Ur Tricyclics Screen NEGATIVE Ur Phencyclidine Scrn NEGATIVE Ur Amphetamine Screen NEGATIVE U Methamphetamines Scrn NEGATIVE U Benzodiazepines Scrn NEGATIVE Urine Cocaine Screen NEGATIVE U Cannabinoids Screen NEGATIVE Ethyl Alcohol - Rads (name of study) CT of the head demonstrates large volume intracranial hemorrhage, with possible transtentorial herniation Relevant Findings:: Final report received, EMP independent interpretation of test Procedures - Intubation - Major Provider: Emergency physician Medications: Propofol (100mg), Rocuronium (50mg) Blade: Yessenia (4) Tube: Size-enter number (7.5), Cuffed Route: Oral Confirmation: Direct visualization PD Medical Decision Making - ED course ED course: arrived and we spoke around 6:10 PM and history was taken from him. This morning at 9 AM she was sitting at the computer typing at the keyboard, but she did not respond to a query of "did you make breakfast." And he noticed that although she was typing on the keyboard, the computer was off. She went over for CT. And I showed the her images with very large volume intracranial hemorrhage, and given the volume of blood and obscuration of the basal cisterns discussed with him that I thought her prognosis was dire. He was able to tell me that in 2007 she did have an aneurysm coiling. He was wanting aggressive care so the images were sent down to [facility] and I spoke with Dr. Reynolds who was not immediately able to review the images but will call me back when she does. Dr. Reynolds called me back after she was able to review the CT images and agrees that there is no reason for transfer down as her prognosis is dire and intervention would not be recommended. at the bedside. Agreeable to ICU admit on the ventilator here pending arrival of family, with consideration for transition to comfort care after they have had time. I spoke with Dr. Houston for admission at 7:20 PM. He notes there will be a delay to being able to see her as he had to go back to the office. At 9:10 PM we had not heard back from Dr. Houston, asked our health critical care unit nurse to reach out to the [facility] and they recommended placing a new consult. agreeable with current plan of care including DNR and plan to transition to comfort care when family is ready. - Critical Care Time(min): 60 Time Includes: Direct patient care, Review records, Reassess patient, Document care, Coordinate care, Medical consult, Family consult for tx dec Data interpretation: Labs, Pulse ox Procedures included in critical care time: Peripheral IV Procedures excluded from critical care time: Intubation, EKG Departure - Departure Disposition: 66 [facility] DC/Xfer Clinical Impression: Intracranial hemorrhage, Coma Condition: Critical
[2023-02-27 17:42] LABS: BASOPHILS % (AUTO) 0.2 %; HCT - HEMATOCRIT 42.2 % (37.0-47.0); LYMPHOCYTES # (AUTO) 0.7 10^3/uL (1.5-3.5); LYMPHOCYTES % (AUTO) 7.6 %; MEAN CORPUSCULAR HEMOGLOBIN 31.8 pg (27.0-31.0); MEAN CORPUSCULAR HGB CONC 33.2 g/dL (32.0-36.0); MEAN CORPUSCULAR VOLUME 95.9 fL (81.0-99.0); MEAN PLATELET VOLUME 9.7 fL (7.9-10.8); MONOCYTES # (AUTO) 0.5 10^3/uL (0.0-1.0); MONOCYTES % (AUTO) 5.6 %; NEUTROPHILS # (AUTO) 7.7 10^3/uL (1.5-6.6); NEUTROPHILS % (AUTO) 86.4 %; PLT - PLATELET COUNT 150 10^3/uL (130-450); RED CELL DISTRIBUTION WIDTH 13.1 % (12.0-15.0); WHITE BLOOD COUNT 8.9 x10^3/uL (4.8-10.8)
[2023-02-27 17:47] LABS: INR 1.1 (0.8-1.2); PT - PROTHROMBIN TIME 11.8 secs (9.9-12.6)
[2023-02-27 17:47] LABS: VBG PCO2 30.9 mmHg (41-51); VBG PH 7.434 (7.31-7.41); VBG PO2 103.7 mmHg (25-47)
[2023-02-27 17:48] LABS: VBG HCO3 20.2 mmol/L (23-28); VBG OXYGEN SATURATION 97.8 % (60-80); VBG TOTAL CO2 21.2 mmol/L (24-29)
[2023-02-27] MEDS ORDERED: ROCURONIUM 50 MG/5 ML VIAL IVP STA (17:51)
[2023-02-27 17:52] LABS: MUDS CUTOFF CONCENTRATIONS CUTOFF CONC BELOW:
[2023-02-27 17:56] LABS: BILIRUBIN,URINE NEGATIVE (NEGATIVE); GLUCOSE, URINE (UA) 250 mg/dL (NEGATIVE); KETONES,URINE (UA) TRACE mg/dL (NEGATIVE); LEUKOCYTE ESTERASE, URINE NEGATIVE (NEGATIVE); NITRITE,URINE NEGATIVE (NEGATIVE); OCCULT BLOOD,URINE LARGE (NEGATIVE); PROTEIN,URINE >=300 mg/dL (NEGATIVE); UROBILINOGEN,URINE 0.2 (NORMAL) E.U./dL (NORMAL)
[2023-02-27 17:57] LABS: ALBUMIN 4.5 g/dL (3.2-5.5); ALBUMIN/GLOBULIN RATIO 1.4 (1.0-2.2); ALKALINE PHOSPHATASE 57 IU/L (42-121); ALT ALANINE AMINOTRANSFERASE 30 IU/L (10-60); AST ASPARTATE AMINOTRANSFERASE 36 IU/L (10-42); BILIRUBIN,TOTAL 0.9 mg/dL (0.2-1.0); BUN - BLOOD UREA NITROGEN 23 mg/dL (6-20); CARBON DIOXIDE - CO2 26 mmol/L (21-32); CHLORIDE 100 mmol/L (101-111); CREATININE 0.9 mg/dL (0.6-1.3); ETOH - ETHANOL < 10.0 mg/dL; GFR - MDRD 62 (>89); GLUCOSE 192 mg/dL (74-104); MAGNESIUM 1.6 mg/dL (1.7-2.3); PHOSPHORUS 5.7 mg/dL (2.5-5.0); POTASSIUM 3.7 mmol/L (3.5-4.5); SODIUM 140 mmol/L (135-145); TOTAL PROTEIN 7.7 g/dL (6.4-8.9)
[2023-02-27 17:59] LABS: CLARITY,URINE HAZY (CLEAR)
[2023-02-27 18:06] LABS: BACTERIA,URINE Few /HPF (None Seen); RBC,URINE TNTC /HPF (0-5); SQUAMOUS EPITHELIAL CELL,UR NONE SEEN (<= Few); WBC,URINE 0-3 /HPF (0-5)
[2023-02-27 18:07] LABS: AMPHETAMINE SCREEN,URINE NEGATIVE (NEGATIVE); BARBITURATE SCREEN,UR NEGATIVE (NEGATIVE); BENZODIAZEPINES SCREEN, URINE NEGATIVE (NEGATIVE); COCAINE SCREEN URINE NEGATIVE (NEGATIVE); METHADONE SCREEN, URINE NEGATIVE (NEGATIVE); METHAMPHETAMINES SCREEN, URINE NEGATIVE (NEGATIVE); OPIATE SCREEN, URINE NEGATIVE (NEGATIVE); OXYCODONE SCREEN, URINE NEGATIVE (NEGATIVE); PROPOXYPHENE SCREEN, URINE NEGATIVE (NEGATIVE); THC CANNABINOID SCREEN, URINE NEGATIVE (NEGATIVE); TRICYCLIC ANTIDEPRESSANT,URINE NEGATIVE (NEGATIVE)
[2023-02-27 18:38] LABS: B. PARAPERTUSSIS- RESP PCR PAN NOT DETECTED; B. PERTUSSIS- RESP PCR PANEL NOT DETECTED; C. PNEUMONIAE- RESP PCR PANEL NOT DETECTED; CORONAVIRUS 229E-RESP PCR NOT DETECTED; CORONAVIRUS HKU1-RESP PCR NOT DETECTED; CORONAVIRUS NL63-RESP PCR NOT DETECTED; CORONAVIRUS OC43-RESP PCR NOT DETECTED; HUMAN METAPNEUMOVIRUS NOT DETECTED; INFLUENZA A- RESP PCR PANEL NOT DETECTED; INFLUENZA B - RESP PCR PANEL NOT DETECTED; M. PNEUMONIAE- RESP PCR PANEL NOT DETECTED; PARAINFLUENZA VIRUS 1 NOT DETECTED; PARAINFLUENZA VIRUS 2 NOT DETECTED; PARAINFLUENZA VIRUS 3 NOT DETECTED; PARAINFLUENZA VIRUS 4 NOT DETECTED; RHINOVIRUS/ENTEROVIRUS NOT DETECTED; RSV- RESP PCR PANEL NOT DETECTED; SARS-CoV-2 -RESP PCR PANEL NOT DETECTED
--- NOTE | 2023-02-27 18:52 | CT Report ---
PROCEDURE: HEAD WO INDICATIONS: obtunded TECHNIQUE: Noncontrast 4.5 mm thick angled axial sections acquired from the foramen magnum to the vertex. For r adiation dose reduction, the following was used: automated exposure control, adjustment of mA and/or kV according to patient size. COMPARISON: Head CT 07/21/2017 FINDINGS: Large volume acute intracranial hemorrhage with hemorrhage in the lateral ventricles, third ventricle , fourth ventricle. Intraparenchymal hemorrhage left frontal temporal lobe. Subarachnoid hemorrhage a long the left hemisphere and sylvian fissure. Left right midline shift, approximately 15 mm. 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 Basal cisterns not well visualiz ed. IMPRESSION: Large volume acute intracranial hemorrhage as described above. Basal cisterns are not well visualized , could be related to obscuration by coil mass streak artifact but downward transtentorial herniation difficult to exclude. Result of acute large volume intracranial hemorrhage discussed with Dr. Rodriguez 1848 hours. Reviewed by: Isma Lucero MD on 02/27/2023 6:51 PM PDT Approved by: Isma Lucero MD on 02/27/2023 6:51 PM PDT Station ID: [id number]
--- NOTE | 2023-02-27 19:15 | XRAY Report ---
PROCEDURE: Chest 1 View X-Ray INDICATIONS: resp failure TECHNIQUE: One view of the chest was acquired. COMPARISON: None. FINDINGS: Surgical changes and devices: Endotracheal tube tip is at the level of the conrado. Nasogastric tube tip is below the level of the diaphragm, not visible on the film. Lungs and pleura: Mild bilateral perihilar alveolar opacity and possible small retrocardiac density. No pneumothorax or significant pleural effusion. Mediastinum: Mild cardiomegaly. Normal aortic contour. Bones and chest wall: No suspicious bony lesions. Overlying soft tissues appear unremarkable. IMPRESSION: 1. Endotracheal tube at the level of the conrado. This should be retracted 2 cm. 2. Cardiomegaly and mild perihilar alveolar opacity may indicate central vascular congestion and conchis a. Correlate with BNP. 3. Left retrocardiac opacity is likely atelectasis. Underlying infection is not excluded. Reviewed by: Zulma Flores MD on 02/27/2023 7:13 PM PDT Approved by: Zulma Flores MD on 02/27/2023 7:13 PM PDT Station ID: [id number]
--- NOTE | 2023-02-27 19:26 | CT Report ---
PROCEDURE: CHEST W INDICATIONS: Found down, obtunded CONTRAST: 100mL Omni 300 TECHNIQUE: After the administration of intravenous contrast, 1 mm axial images were acquired from the pulmonary apices through the posterior costophrenic angles. Axial 5 mm soft tissue kernel reconstructions were performed as well as 8 mm axial MIP and coronal and sagittal 5 mm reformations. For radiation dose reduction, the following was used: automated exposure control, adjustment of mA and/or kV according to patient size. COMPARISON: None. Correlation made to plain films same day. FINDINGS: Image quality: Decreased due to respiratory motion.. Lungs and pleura: There is a small atelectatic opacity in the medial left lower lobe and medial left upper lobe. Lung volumes are low. No pleural effusions. No pneumothorax. The endotracheal tube tip i s just above the bifurcation. Main airways are narrowed suggesting hypoinflation. There are no other suspicious consolidations or obvious masses given limitations of the exam. Mediastinum: Heart size is enlarged. The atria are enlarged out of proportion of the ventricles. Ther e is a small dependently layering pericardial effusion. No large vessel abnormality. No mediastinal a denopathy by size criteria. Chest wall and lower neck: Thyroid is unremarkable. No axillary or supraclavicular adenopathy by size . Bones: No aggressive osseous abnormality. Upper Abdomen: Dictated separately. IMPRESSION: 1. Cardiomegaly with atrial dilatation out of proportion to the ventricle size. 2. Atelectatic changes in the left lung. 3. Pulmonary hypoinflation. 4. Discussed with Dr. Rodriguez. Reviewed by: Zulma Flores MD on 02/27/2023 7:25 PM PDT Approved by: Zulma Flores MD on 02/27/2023 7:25 PM PDT Station ID: [id number]
--- NOTE | 2023-02-27 19:29 | CT Report ---
PROCEDURE: ABDOMEN/PELVIS W INDICATIONS: Found down, obtunded CONTRAST: 100mL Omni 300 TECHNIQUE: After the administration of oral and intravenous contrast, 5 mm thick sections acquired from the diap hragms to the symphysis. 5 mm thick coronal and sagittal reformats were acquired. For radiation dos e reduction, the following was used: automated exposure control, adjustment of mA and/or kV accordin g to patient size. COMPARISON: None FINDINGS: Image quality: Excellent. Lung bases and heart: Dictated separately. Liver: Mild left lobe dilatation and tiny hypodensity in the subcapsular anterior segment 3. Gallbladder and biliary tree: Cholelithiasis. No CT evidence of acute cholecystitis. No biliary dilat ation. Spleen: Normal size spleen. Pancreas: Normal. Adrenals: No nodules. Kidneys and ureters: No hydronephrosis. No renal cystic lesion which requires follow up. No solid mas s. Bowel and peritoneum: NG tube decompressing the stomach. Small bowel and colon loops are within tracy l limits. Lymph nodes: No central or retroperitoneal adenopathy. Vessels: No infrarenal aortic aneurysm. PELVIS Reproductive organs: The uterus is enlarged and lobulated with several masses containing coarse calci fication consistent with fibroids. No suspicious adnexal mass. Bladder: Partially decompressed with a Varma catheter. Pelvic lymph nodes: No pelvic adenopathy by size criteria. Bones: No aggressive osseous abnormality. Other: No significant ventral or inguinal hernia. IMPRESSION: 1. No acute process in the abdomen or pelvis. 2. Incidental and nonacute findings as described above. Reviewed by: Zulma Flores MD on 02/27/2023 7:28 PM PDT Approved by: Zulma Flores MD on 02/27/2023 7:28 PM PDT Station ID: [id number]
--- NOTE | 2023-02-27 19:34 | CT Report ---
PROCEDURE: CERVICAL SPINE WO INDICATIONS: Found down, obtunded TECHNIQUE: Noncontrast 3 mm thick sections acquired from the skull base to the T4 level. Sagittal and coronal r eformats were then constructed. For radiation dose reduction, the following was used: automated exp osure control, adjustment of mA and/or kV according to patient size. COMPARISON: None. FINDINGS: Image quality: Excellent. Bones: No fractures or dislocations. Mild degeneration at the atlantodental interval. Mild multileve l degenerative disc height loss. Visualized superior ribs are intact. Soft tissues: The visible portion of the base the brain demonstrates large amount of intraventricular and subarachnoid hemorrhage. There is an aneurysm clip on the left midline. Basal cisterns are fille d with hemorrhage and there is subarachnoid hemorrhage throughout the visible CSF spaces in the spina l canal. Endotracheal tube is in place. Prevertebral soft tissues are normal in thickness. No paravertebral h ematomas. No apical pneumothoraces. IMPRESSION: 1. No CT evidence of acute cervical spine fracture. 2. Subarachnoid hemorrhage in the CSF space extending from the intracranial space. 3. Mild degeneration. Reviewed by: Zulma Flores MD on 02/27/2023 7:33 PM PDT Approved by: Zulma Flores MD on 02/27/2023 7:33 PM PDT Station ID: [id number]
[2023-02-27] MEDS ORDERED: SODIUM CHLORIDE FLUSH 0.9% 10 ML SYRINGE IVP PRN (21:41)
[2023-02-27] MEDS ORDERED: NICARDIPINE HCL 25 MG in SODIUM CHLORIDE 0.9% 240 ML IV PRN (21:48)
--- NOTE | 2023-02-27 21:58 | HISTORY & PHYSICAL EXAMINATION ---
Chief Complaint - Chief Complaint Chief Complaint: code stroke History of Present Illness - Admitted From Admitted From:: Home - History Obtained From Records Reviewed: Yes History obtained from: ER MD, chart review and Exam Limitations: Intubated - History of Present Illness HPI Comment/Other: This is a 72-year-old woman who presents by ambulance. She was brought in as a code stroke, the history I get from EMS is that she was last known normal at 9 AM this morning and was with sleeping in her chair today and then unarousable. On arrival she is completely obtunded with GCS of 3 and reportedly full code. She has a history of A-fib, not reportedly on a DOAC and diabetes. As per This morning at 9 AM she was sitting at the computer typing at the keyboard, but she did not respond to a query of "did you make breakfast." And he noticed that although she was typing on the keyboard, the computer was off. Dr Reyna had spoke with the who inititally wanted aggressive care and ER md had images were sent down to [facility] and spoke with Dr. Gail iglesias as able to review the CT images and agrees that there is no reason for transfer down as her prognosis is dire and intervention would not be recommended. at the bedside. Agreeable to ICU admit on the ventilator here pending arrival of family, with consideration for transition to comfort care after they have had time. I was called for admission intially only present at bedside, I told the ER MD i preferred for more family to come, when son Khanh and at bedside, I had a lengthy discussion with both of them, was not ready for compassionate extubation at this time and wanted for more family to arrive, hence patient will be admitted to ICU. and son agrees to making patient DNR. we spoke about compassionate extubation and comfort care which they want to wait for now, will respect family wishes Family informed that this is a televideo admission and I am based out [facility] in [place] and they agree and understand History - Past Medical History Cardiovascular: reports: Hypertension Respiratory: reports: Sleep apnea GI: reports: None OFFICE RENTAL CLERK: reports: None : reports: None HEENT: reports: None Psych: reports: None Musculoskeletal: reports: None Derm: reports: None MRSA Hx?: No - Family & Social History Family History Comment/Other: pt is living with her in [place], has three children. - Substance History Use: Uses substance without health or social issues: NONE - POLST Patient has POLST: No POLST Status: Full Code Meds/Allgy - Home Medications Home Medications: Ambulatory Orders Medication Instructions Recorded Confirmed Potassium Chloride 10 meq PO DAILYWM 01/11/13 02/27/23 Doxazosin Mesylate 8 mg PO QPM 11/29/16 02/27/23 Losartan Potassium [Cozaar] 100 mg PO DAILY 11/29/16 02/27/23 Aspirin 325 mg PO QDBREAKFAST #30 tablet 11/30/16 02/27/23 Levothyroxine Sodium [Synthroid] 50 mcg PO QDAC 11/30/16 02/27/23 metFORMIN [Glucophage] 500 mg PO BIDWM 07/21/17 02/27/23 hydrALAZINE [Apresoline] 10 mg PO BID #60 tablet 07/24/17 02/27/23 Metoprolol Succinate [Toprol Xl] 50 mg PO TID 10/23/22 02/27/23 Simvastatin [Zocor] 20 mg PO DAILY 10/23/22 02/27/23 - Allergies Allergies/Adverse Reactions: Allergies Allergy/AdvReac Type Severity Reaction Status Date / Time lisinopril Allergy Severe Respiratory Verified 02/27/23 17:29 amlodipine [From Norvasc] Allergy Unknown Verified 02/27/23 17:29 phenytoin [From Dilantin] Allergy Unknown Verified 02/27/23 17:29 amlodipine besylate * AdvReac Intermediate Edema Verified 02/27/23 17:29 [From [facility]] Review of Systems - Other Findings Other Findings: Unable to obtain as patient is on mechanical ventilation Prior Level of Functionality: Independent with ADL Exam - Vital Signs Vital Signs: Vital Signs x48h Temp Pulse Resp BP Pulse Ox 02/27/23 21:23 36.1 C L 74 20 112/79 95 02/27/23 19:57 35.6 C L 88 16 91/62 100 02/27/23 19:33 35.6 C L 102 H 16 126/76 100 02/27/23 19:14 35.7 C L 109 H 16 138/74 H 100 02/27/23 19:00 35.7 C L 121 H 15 136/74 H 100 09/06/23 18:50 35.7 C L 108 H 20 156/96 H 98 02/27/23 18:46 119 H 02/27/23 17:57 96 16 157/83 H 96 02/27/23 17:40 105 H 16 95/62 100 02/27/23 17:33 153 H 18 71/53 L 100 02/27/23 17:24 36.3 C L 66 14 163/67 H 94 - Physical Exam General Appearance: positive: No acute distress Respiratory: positive: Other (On mechanical ventilation) Neurologic/Psychiatric: positive: Other (Intubated) Sepsis Event Note (H) - Evaluation Current Stage of Sepsis: Ruled out Conclusion/Plan - Problem List (1) Intracranial hemorrhage Conclusion/Plan: on Mechanical ventialtion keppra 750 bid Cardene drip prn Poor prognosis discussed at [facility] with family at this time verypoor prognosis, spoke with ER MD that patient should go to higher level of care, he already has discussed patient at [facility] at higher level of care and they declined patient after reviewing images and stated no intervention can be offered and recommend comfort care Discussed with family they want to wait for more family to come in for now patient will be given supportive care and will wait for more family to arrive in the interim patient is made DNR after talkiing with family (2) Cerebrovascular accident (CVA) with intracranial hemorrhage Conclusion/Plan: As above (3) DM2 (diabetes mellitus, type 2) Conclusion/Plan: No meds as patient is npo and poor prognosis (4) Hypothyroidism Conclusion/Plan: No meds for now can be with out meds for 7 days with no clinical issues - Lab Results Fish Bones: 02/27/23 17:35 02/27/23 17:35 - Diagnostic Imaging Results Diagnostic Imaging Results: positive: Final report reviewed - EKG Results EKG Interpreted Independently: No
[2023-02-27] MEDS ORDERED: levETIRAcetam INJ 750 MG in SODIUM CHLORIDE 0.9% 100ML 100 ML IV SCH (22:00)
[2023-02-27] MEDS: PANTOPRAZOLE 40 MG VIAL IVP SCH (23:33)
[2023-02-28] MEDS: SODIUM CHLORIDE FLUSH 0.9% 10 ML SYRINGE IVP SCH ×2 (03:46→10:15)
[2023-02-28] MEDS ORDERED: iohexoL-300 100 ML VIAL IVP ONE (03:53)
[2023-02-28 05:10] LABS: BASOPHILS % (AUTO) 0.3 %; EOSINOPHILS # (AUTO) 0.1 10^3/uL (0.0-0.7); EOSINOPHILS % (AUTO) 0.8 %; HCT - HEMATOCRIT 38.5 % (37.0-47.0); HGB - HEMOGLOBIN 12.7 g/dL (12.0-16.0); LYMPHOCYTES # (AUTO) 1.3 10^3/uL (1.5-3.5); LYMPHOCYTES % (AUTO) 17.7 %; MEAN CORPUSCULAR HEMOGLOBIN 31.1 pg (27.0-31.0); MEAN CORPUSCULAR VOLUME 94.4 fL (81.0-99.0); MEAN PLATELET VOLUME 9.7 fL (7.9-10.8); MONOCYTES # (AUTO) 0.3 10^3/uL (0.0-1.0); MONOCYTES % (AUTO) 4.6 %; NEUTROPHILS # (AUTO) 5.7 10^3/uL (1.5-6.6); NEUTROPHILS % (AUTO) 76.5 %; PLT - PLATELET COUNT 124 10^3/uL (130-450); RED BLOOD COUNT 4.08 10^6/uL (4.20-5.40); WHITE BLOOD COUNT 7.4 x10^3/uL (4.8-10.8)
[2023-02-28 05:30] LABS: CALCIUM 9.3 mg/dL (8.5-10.3); CREATININE 1.3 mg/dL (0.6-1.3); MAGNESIUM 1.4 mg/dL (1.7-2.3); POTASSIUM 2.9 mmol/L (3.5-4.5)
[2023-02-28 09:15] VITALS: BP 47/30; O2SAT 99
[2023-02-28] MEDS: PANTOPRAZOLE 40 MG VIAL IVP SCH (10:15)
[2023-02-28] MEDS ORDERED: MORPHINE 2 MG/ML CARPUJECT IVP PRN (10:28)
--- NOTE | 2023-02-28 11:05 | DISCHARGE SUMMARY ---
Discharge Summary Admit Date: 02/27/23 Discharge Date: 02/28/23 Discharging Provider: Dr Laisha Bowie Primary Care Provider: Dr Ghazal Suazo Discharge Disposition: 20 - HPI History of Present Illness: This is a 72-year-old woman who presents by ambulance. She was brought in as a code stroke, the history we get from EMS is that she was last known normal at 9 AM this morning and was with sleeping in her chair today and then unarousable. On arrival she is completely obtunded with GCS of 3 and she is reportedly a Full Code. She has a history of A-fib, not reportedly on a DOAC, had a brain aneurysm that got a coil placed, and has diabetes. As per , this morning at 9 AM she was sitting at the computer typing at the keyboard, but she did not respond to a query of "did you make breakfast." And he noticed that although she was typing on the keyboard, the computer was off. In the ER she was on a vent and had a head CT which showed a very large volume intracranial hemorrhage, with large volume of blood and obscuration of the basal cisterns. The ER provider discussed with the that her prognosis was dire. The inititally wanted aggressive care and ER doctor had images sent down to [facility] and spoke with Dr. Reynolds, who was able to review the CT images and agrees that there is no reason for transfer, as her prognosis is poor and intervention would not be recommended. was then agreeable to ICU admit here, on the ventilator, pending arrival of family, with consideration for transition to comfort care after they have had time. I had a lengthy discussion with son Khanh and at bedside, and the was not ready for compassionate extubation at this time and wanted for more family to arrive. Hence patient will be admitted to ICU. and son agree to making patient DNR. We spoke about compassionate extubation and comfort care which they want to wait for now, will respect family wishes. - HOSPITAL COURSE Hospital Course: (1) Intracranial hemorrhage She was kept on mechanical ventilation, and keppra 750 bid was ordered. Initially a Cardene drip for HTN was considered but not needed because her BP started dropping, was 50/30 the following morning. All members of the family arrived, and she was seen by the armored car guard. She was given Morphine iv, then extubated, and she at 1048 AM. (2) Coma As above (3) DM2 (diabetes mellitus, type 2) No meds started as patient was npo with poor prognosis (4) Hypothyroidism No thyroid meds were given. - ALLERGIES Allergies/Adverse Reactions: Allergies Allergy/AdvReac Type Severity Reaction Status Date / Time lisinopril Allergy Severe Respiratory Verified 02/27/23 17:29 amlodipine [From Norvasc] Allergy Unknown Verified 02/27/23 17:29 phenytoin [From Dilantin] Allergy Unknown Verified 02/27/23 17:29 amlodipine besylate * AdvReac Intermediate Edema Verified 02/27/23 17:29 [From [facility]] - MEDICATIONS Home Medications: Ambulatory Orders Medication Instructions Recorded Confirmed Potassium Chloride 10 meq PO DAILYWM 01/11/13 02/27/23 Doxazosin Mesylate 8 mg PO QPM 11/29/16 02/27/23 Losartan Potassium [Cozaar] 100 mg PO DAILY 11/29/16 02/27/23 Aspirin 325 mg PO QDBREAKFAST #30 tablet 11/30/16 02/27/23 Levothyroxine Sodium [Synthroid] 50 mcg PO QDAC 11/30/16 02/27/23 metFORMIN [Glucophage] 500 mg PO BIDWM 07/21/17 02/27/23 hydrALAZINE [Apresoline] 10 mg PO BID #60 tablet 07/24/17 02/27/23 Metoprolol Succinate [Toprol Xl] 50 mg PO TID 10/23/22 02/27/23 Simvastatin [Zocor] 20 mg PO DAILY 10/23/22 02/27/23 - LABS Result Diagrams: 02/28/23 04:38 02/28/23 04:38 - SEPSIS Current Stage of Sepsis: Ruled out
--- NOTE | 2023-02-28 11:05 | Discharge Plan ---
Discharge Plan Problem Reviewed?: Yes Disposition: 20 No Smoking: If you smoke, Please STOP! Call for help.
== END 2023-02-28 10:48 | disposition expired | DRG 66 ==
LOC: EDUNIT# → ED 17:19 → ICU 21:41
PROVIDERS: ADMIT Internal Medicine; ATTEND Internal Medicine
PROC: 5A1935Z Respiratory Ventilation, Less than 24 Consecutive Hours (ICD-10-PCS; principal; 2023-02-27)
DX: I60.9 Nontraumatic subarachnoid hemorrhage, unspecified (principal); I11.9 Hypertensive heart disease without heart failure; I48.91 Unspecified atrial fibrillation; I62.9 Nontraumatic intracranial hemorrhage, unspecified; R40.2432 Glasgow coma scale score 3-8, at arrival to emergency department; R94.31 Abnormal electrocardiogram [ECG] [EKG]; Z20.822 Contact with and (suspected) exposure to COVID-19; E11.9 Type 2 diabetes mellitus without complications; E03.9 Hypothyroidism, unspecified; I10 Essential (primary) hypertension; G47.30 Sleep apnea, unspecified; Z66 Do not resuscitate; Z79.82 Long term (current) use of aspirin; Z79.84 Long term (current) use of oral hypoglycemic drugs; Z79.890 Hormone replacement therapy; Z79.899 Other long term (current) drug therapy
CPT/HCPCS: 36415; 70450; 71045; 71260; 72125; 74177; 80048; 80053; 80306; 81001; 82803; 83735; 84100; 85025; 85610; 87150; 87633; 93005; 94002; 94003; G0480; Q9967; 80320; 81003; 87086; 94770